=== PATIENT | female | born 1935 | race Caucasian/White ===

== ENCOUNTER → 2017-12-09 | Outpatient (CLI) | payer OTHER ==
[~2017-12-09] MED LIST: A-CARO-2525000 UNIT PO; ACIDOPHILUS PR1 EACH PO; AMBIEN 5 MG TABL5 M1; ARIXTRA; ASPIRIN EC325 M1; BENADRYL ALLERG25 MG; BENADRYL25 MG PO; BILBERRY1 EAC1 PO; CITRACAL PLUS1 EAC1; CITRACAL PLUS1 EAC1 PO; CO Q-10100 MG PO; COLACE100 MG; COQ-10100 MG PO; DIGEST GOLD PO; FISH OIL 1,0001 EAC5; FISH OIL 1,001000 MG PO; GARLIC500 MG PO; GARLIQUE5000 MCG PO; GRAPESEED PO; HYALURONIC ACI1 EACH PO; HYDROXYZINE HCL25 M1; JOINT HEALTH T1 EACH PO; L-LYSINE500 M1 PO; LUTEIN PO; MAG PO; METAMUCIL1 EAC1; MOM; OMEGA-31000 M1 PO; OXECTA5 MG; PAIN & FEVER325 MG; PEPCID AC20 M1; PEPCID40 MG PO; PERCOCET 5-3251 EACH; POLICOSANOL PO; RAW CALCIUM PO; SILVADENE20 GM; STRESS B-COMPL1 EACH PO; SYNTHROID100 MCG PO; TART CHERRY CA1 EACH PO; Turmeric PO; VITAMIN B-12500 MCG PO; VITAMIN D-32000 UNIT PO; VITAMIN D35000 UNI1 PO; VITAMIN E400 UNI7 PO; VITAMIN K100 MCG PO; VITAMINC500 PO; VITCB500GO PO; ZEAXANTHIN PO; [UNRECOGNIZED DRUG - OTHER] PO; [UNRECOGNIZED DRUG - OTHER] PO
== END ==
LOC: M.NUC 11-30 11:24
DX: M81.0 Age-related osteoporosis without current pathological fracture (principal); M19.072 Primary osteoarthritis, left ankle and foot; M19.032 Primary osteoarthritis, left wrist

== ENCOUNTER → 2018-01-03 | Outpatient (CLI) | payer OTHER | LOC: M.ULTRA 10:00 | DX: M79.604 Pain in right leg (principal); M79.89 Other specified soft tissue disorders ==

== ENCOUNTER 2018-02-01 11:45 | Emergency (ER) | payer OTHER ==
[~2018-02-01] VITALS: Ht 167.6 cm; Wt 101.2 kg
[~2018-02-01 11:45] MED LIST changes: -A-CARO-2525000 UNIT PO; -BENADRYL25 MG PO; -CO Q-10100 MG PO; -GARLIC500 MG PO; -JOINT HEALTH T1 EACH PO; -OMEGA-31000 M1 PO; -PEPCID40 MG PO; -STRESS B-COMPL1 EACH PO; -TART CHERRY CA1 EACH PO; -VITAMIN K100 MCG PO; -VITAMINC500 PO
[2018-02-01] MEDS ORDERED: VITAMIN K100 MCG PO (12:17)
[2018-02-01] MEDS ORDERED: TART CHERRY CA1 EACH PO (12:19)
[2018-02-01] MEDS ORDERED: A-CARO-2525000 UNIT PO (12:19)
[2018-02-01] MEDS ORDERED: STRESS B-COMPL1 EACH PO (12:20)
[2018-02-01] MEDS ORDERED: JOINT HEALTH T1 EACH PO (12:20)
[2018-02-01] MEDS ORDERED: OMEGA-31000 M1 PO (12:24)
[2018-02-01] MEDS ORDERED: VITAMINC500 PO (12:25)
[2018-02-01] MEDS ORDERED: CO Q-10100 MG PO (12:25)
[2018-02-01] MEDS ORDERED: GARLIC500 MG PO (12:26)
[2018-02-01] MEDS ORDERED: BENADRYL25 MG PO (13:12)
[2018-02-01] MEDS ORDERED: PEPCID40 MG PO (13:12)
[2018-02-01 13:22] VITALS: BP 131/50
== END 2018-02-01 13:23 | disposition home or self-care (01) ==
LOC: M.ERS 11:45
DX: T78.40XA Allergy, unspecified, initial encounter (principal); X58.XXXA Exposure to other specified factors, initial encounter; M10.9 Gout, unspecified; E03.9 Hypothyroidism, unspecified; Z90.49 Acquired absence of other specified parts of digestive tract

== ENCOUNTER → 2018-04-04 | Outpatient (CLI) | payer OTHER ==
[~2018-04-04] MED LIST changes: +A-CARO-2525000 UNIT PO; +BENADRYL25 MG PO; +CO Q-10100 MG PO; +GARLIC500 MG PO; +JOINT HEALTH T1 EACH PO; +OMEGA-31000 M1 PO; +PEPCID40 MG PO; +STRESS B-COMPL1 EACH PO; +TART CHERRY CA1 EACH PO; +VITAMIN K100 MCG PO; +VITAMINC500 PO
== END ==
LOC: M.RAD 12:44
DX: R92.1 Mammographic calcification found on diagnostic imaging of breast (principal)

== ENCOUNTER → 2018-04-07 | Outpatient (CLI) | payer OTHER ==
--- NOTE | 2018-04-20 00:39 | ONC ---
[place] [address] RADIATION ONCOLOGY NOTE Name: CORI FRANCISCO Room: [facility]#: [id number] Admission: 04/07/18 Attend Phys: Yosef Forte MD Discharge: Date of : 37 Report #: [id number] THIS REPORT FOR: //name// CC: Yosef Savage DATE OF SERVICE: 04/07/2018 REFERRING PHYSICIANS: Niecy Nair DO; Sesar Fernando MD and Dr. Greg Savage [facility] phone is [phone]. PRIMARY SITE AND HISTOPATHOLOGY: The patient received radiation therapy as part of breast conservation therapy for a stage IA infiltrating ductal carcinoma that involved the right breast. She completed radiation therapy on 01/24/2013. She also has been following up with her gynecological oncologist, Dr. Castillo after she had a hysterectomy in 2007 for an early uterine cancer. INTERVAL NOTE: The patient denied having any nipple discharge from the right breast. She denied having any nipple discharge from the left breast. She denied having any suspicious palpable masses involving the right breast. She denied having any suspicious palpable mass involving the left breast. She denied having any upper extremity edema. MEDICATIONS: Levothyroxine and supplements. SOCIAL HISTORY: The patient is retired. She is . Cigarettes: she does not smoke cigarettes. REVIEW OF SYSTEMS: RESPIRATORY: The patient's breathing was baseline at this time. She was not short of breath. MUSCULOSKELETAL: She had good range of motion of her upper extremities. PHYSICAL EXAMINATION: With my nurse, Alma Younger, present: VITAL SIGNS: The patient weighed 212 pounds on 04/07/2018 and 203.2 pounds on 04/08/2017. On 04/07/2018, blood pressure was 137/71 and pulse 89. LYMPH NODES: She had no palpable cervical, supraclavicular or axillary lymphadenopathy. HEART: Had a regular rate and rhythm without murmur. LUNGS: were clear to auscultation. BREASTS: Right breast had no suspicious palpable masses[place] [address] RADIATION ONCOLOGY NOTE Name: CORI FRANCISCO Room: [facility]#: [id number] Admission: 04/07/18 Attend Phys: Yosef Forte MD Discharge: Date of : 37 Report #: [id number] suspicious palpable masses. ABDOMEN: Not tender. Liver was at the costal margin. EXTREMITIES: She had no clubbing, cyanosis or edema. RADIOLOGIC DATA: From 04/04/2018 from [facility], she had a bilateral mammogram which revealed benign findings and annual mammography was recommended. ASSESSMENT AND PLAN: 1. History of right breast cancer- There is no evidence of breast cancer at this time. The patient was given a requisition for a bilateral mammogram in about a year. She was asked to schedule a followup appointment to see me afterwards. 2. History of early uterine cancer- She had a hysterectomy around 05/13/2008. She was following up with her gynecological oncologist, Dr. Castillo who may have retired according to the patient. If that is the case, she will be referred to the gynecological oncologist, Dr. Salgado for continued followup. 3. Hypothyroidism- The patient takes Synthroid under the direction of her referring physicians. 4. Benign systolic ejection murmur- She continues to have a stable systolic ejection murmur and follows up with her internet developer, Dr. Fernando. Thank you for allowing me to participate in the care of this patient. <ELECTRONICALLY SIGNED> By: Yosef Forte MD 04/20/18 0039 1305 0110Yosef Forte MD /nt
== END ==
LOC: M.RTH 01:31
DX: C50.911 Malignant neoplasm of unspecified site of right female breast (principal); E03.9 Hypothyroidism, unspecified; R01.1 Cardiac murmur, unspecified

== ENCOUNTER → 2018-05-02 | Outpatient (CLI) | payer OTHER ==
--- NOTE | 2018-05-02 16:43 | 2DMMODE ---
[place] [address] 2 D/M-MODE ECHOCARDIOGRAM Name: CORI FRANCISCO MINERVA Room: [facility]#: [id number] Admission: 05/02/18 Attend Phys: Sesar Fernando, Discharge: Date of : 37 Date of Service: 05/02/18 1643 Report #: [id number] THIS REPORT FOR: //name// APPROVED REPORT Study performed: 05/02/2018 14:22:24 EXAM: Comprehensive 2D, Doppler, and color-flow Echocardiogram Patient Location: Out-Patient Status: routine BSA: 1.95 HR: 92 bpm BP: 120/68 mmHg Other Information Study Quality: Good Indications Aortic Valve Disease 2D Dimensions LVEF(%): 71.36 (>50%) IVSd: 12.41 (7-11mm) LVOT Diam: 20.44 (18-24mm) LVDd: 43.42 mm PWd: 11.21 (7-11mm) Ascending Ao: 26.89 (22-36mm) LVDs: 25.89 (25-40mm) Aortic Root: 28.41 mm Sinclair's LVEF: 71.36 % Volumes Left Atrial Volume (Systole) LA ESV Index: 24.00 mL/m2 Aortic Valve AoV Peak Zeb.: 4.26 m/s AO Peak Gr.: 72.73 mmHg LVOT Max P.18 mmHg AO Mean Gr.: 43.94 mmHg LVOT Mean P.64 mmHg LVOT Max V: 0.89 m/s AO V2 VTI: 103.25 cm LVOT Mean V: 0.59 m/s DENILSON (VTI): 0.67 cm2 LVOT V1 VTI: 20.95 cm AI [place]: 5.26 m/s2 AI PHT: 234.70 [place] [address] 2 D/M-MODE ECHOCARDIOGRAM Name: NOLANCORI PALMA Room: [facility]#: [id number] Admission: 05/02/18 Attend Phys: Sesar Fernando, Discharge: Date of : 37 Date of Service: 05/02/18 1643 Report #: [id number] MV Peak Gr.: 11.38 mmHg MV Mean Gr.: 5.62 mmHg E/A Ratio: 1.34 MV Decel. Time: 169.90 ms MV E Max Zeb.: 1.48 m/s MV PHT: 49.27 ms MVA (PHT): 4.47 cm2 TDI E/Lateral E': 16.44 E/Medial E': 29.60 Medial E' Zeb.: 0.05 m/s Lateral E' Zeb.: 0.09 m/s Pulmonary Valve PV Peak Zeb.: 0.79 m/s PV Peak Gr.: 2.52 mmHg Tricuspid Valve TR Peak Gr.: 56.44 mmHg RVSP: 61.44 mmHg Left Ventricle The left ventricle is normal size. There is normal LV segmental wall motion. There is normal left ventricular wall thickness. Left ventricular systolic function is normal. LVEF is 55-60%. Transmitral Doppler flow pattern suggests restrictive physiology. Right Ventricle The right ventricle is normal size. The right ventricular systolic function is normal. Atria Left atrium is mildly dilated. Right atrium is moderately dilated. Aortic Valve Aortic valve is calcified. Moderate aortic regurgitation. Severe aortic stenosis. Mitral Valve There is mitral annular calcification. Mitral valve leaflets are thickened. Moderate mitral regurgitation. Mild to moderate mitral stenosis. Tricuspid Valve The tricuspid valve is normal in structure. Moderate tricuspid regurgitation. The RVSP is __61.4 [place] [address] 2 D/M-MODE ECHOCARDIOGRAM Name: CORI FRANCISCO Room: [facility]#: [id number] Admission: 05/02/18 Attend Phys: Sesar Fernando, Discharge: Date of : 37 Date of Service: 05/02/18 1643 Report #: [id number] The pulmonary valve is normal in structure. There is no pulmonic valvular regurgitation. Great Vessels The aortic root is normal in size. IVC is normal in size and collapses with >50% inspiration Pericardium There is no pericardial effusion. <Conclusion> The left ventricle is normal size. There is normal left ventricular wall thickness. Left ventricular systolic function is normal. LVEF is 55-60%. Transmitral Doppler flow pattern suggests restrictive physiology. Left atrium is mildly dilated. Right atrium is moderately dilated. Aortic valve is calcified. Moderate aortic regurgitation. Severe aortic stenosis. There is mitral annular calcification. Mitral valve leaflets are thickened. Moderate mitral regurgitation. Mild to moderate mitral stenosis. Moderate tricuspid regurgitation. The RVSP is __61.4 mmHg. <ELECTRONICALLY SIGNED> By: Sesar Fernando MD, FACC 05/02/18 164 42 42 Sesar Fernando MD, FACC /INF
== END ==
LOC: M.CRD 14:00
DX: I08.3 Combined rheumatic disorders of mitral, aortic and tricuspid valves (principal)

== ENCOUNTER 2019-03-13 17:29 | Inpatient (IN) | payer OTHER ==
[~2019-03-13] VITALS: Ht 167.6 cm; Wt 93.9 kg
[2019-03-13 17:47] VITALS: BP 151/81
[2019-03-13 18:24] LABS: ABSOLUTE BASOPHILS 0.1 thou/uL (0.0-0.2); ABSOLUTE EOSINOPHILS 0.2 thou/uL (0.0-0.7); ABSOLUTE LYMPHOCYTES 0.7 thou/uL (0.8-5.3); ABSOLUTE MONOCYTES 0.2 thou/uL (0.0-1.2); ABSOLUTE NEUTROPHILS 2.8 thou/uL (1.6-8.1); BASOPHILS 2.1 %; EOSINOPHILS 4.8 %; HEMATOCRIT 35.9 % (37.0-47.0); HEMOGLOBIN 12.3 gm/dL (12.0-15.0); LYMPHOCYTES 17.4 %; MCHC 34.2 g/dL (28.0-37.0); MCV 96.5 fL (80.0-100.0); MONOCYTES 5.6 %; MPV 6.1 fl. (7.2-11.1); NUCLEATED RBCS 0 /100WBC; PLATELET COUNT* 189 thou/uL (150-400); POLYS 70.1 %; RBC 3.72 mil/uL (4.20-5.00); RDW-CV 16.8 % (10.5-14.5); WBC 4.1 thou/uL (4.0-11.0)
[2019-03-13 18:32] LABS: CALCIUM 9.1 mg/dL (8.5-10.1); CREATININE 0.8 mg/dL (0.6-1.3); POTASSIUM 4.2 mmol/L (3.5-5.1)
[2019-03-13 18:43] LABS: ALBUMIN 3.2 g/dL (3.4-5.0); TOTAL BILIRUBIN 1.5 mg/dL (<0.1-1.0); TOTAL PROTEIN 6.6 g/dL (6.4-8.2)
[2019-03-13 20:00] VITALS: BP 156/75
[2019-03-13 20:05] VITALS: BP 145/68
--- NOTE | 2019-03-14 01:46 | NUR ---
PT ADMIT TO ROOM 231. ALERT, ORIENTED, FORGETFUL. UP TO BSC WITH STAND BY ASSIST. GOOD RESPONCE WITH LASIX. 4500 OP SO FAR THIS SHIFT. LOWER EXTREM EDEMA +3. LOWER LEG SKIN RIPPLED. DENIES PAIN. MED SURG STATUS.
[2019-03-14 04:00] VITALS: BP 123/53
--- NOTE | 2019-03-14 04:23 | NUR ---
NPO SINCE MN. FOR CARDIOLOGY CONSULT.
[2019-03-14 05:47] LABS: HEMATOCRIT 32.7 % (37.0-47.0); HEMOGLOBIN 11.2 gm/dL (12.0-15.0); MCH 32.8 pg (26.0-34.0); MCHC 34.3 g/dL (28.0-37.0); MCV 95.5 fL (80.0-100.0); MPV 6.7 fl. (7.2-11.1); RBC 3.42 mil/uL (4.20-5.00); WBC 3.6 thou/uL (4.0-11.0)
[2019-03-14 06:15] LABS: ALBUMIN 2.7 g/dL (3.4-5.0); CALCIUM 8.4 mg/dL (8.5-10.1); CREATININE 0.8 mg/dL (0.6-1.3); MAGNESIUM 1.9 mg/dL (1.8-2.4); POTASSIUM 3.7 mmol/L (3.5-5.1); TOTAL BILIRUBIN 1.3 mg/dL (<0.1-1.0); TOTAL PROTEIN 5.7 g/dL (6.4-8.2)
[2019-03-14 08:00] VITALS: BP 134/53
[2019-03-14] MEDS ORDERED: LEVAQUIN 500 M500 M2 PO (12:05)
--- NOTE | 2019-03-14 12:22 | NUR ---
MET WITH PT TO DISCUSS HOME SITUATION/DC PLANNING. PT LIVES ALONE, HAS SUPPORTIVE COUSIN AND DTR. PT DRIVES AND IS INDEPENDENT. USES CANE AND HAS WALK IN TUB. HAD HH IN PAST WITH HER KNEE SURGERIES. STATES HAS HAD PROBLEMS WITH LYMPHEDEMA IN HER LEG SINCE SURGERY. DTR AND COUSIN ARE DPOA. PT DENIES NEEDS AT THIS TIME.
--- NOTE | 2019-03-14 13:30 | 2DMMODE ---
[place] [address] 2 D/M-MODE ECHOCARDIOGRAM Name: CORI FRANCISCOU Room: [address] IN [facility]#: [id number] Admission: 03/13/19 Attend Phys: Shakira Wilson, Discharge: Date of : 37 Date of Service: 03/14/19 1330 Report #: [id number] THIS REPORT FOR: //name// APPROVED REPORT Study performed: 03/14/2019 10:50:27 EXAM: Comprehensive 2D, Doppler, and color-flow Echocardiogram Patient Location: In-Patient Room #: [facility] Status: routine BSA: 2.03 HR: 77 bpm BP: 134/53 mmHg Rhythm: NSR Other Information Study Quality: Good Indications Aortic Valve Disease edema 2D Dimensions IVSd: 13.99 (7-11mm) LVOT Diam: 20.13 (18-24mm) LVDd: 35.40 mm PWd: 13.02 (7-11mm) Ascending Ao: 28.60 (22-36mm) LVDs: 21.60 (25-40mm) Aortic Root: 30.09 mm Volumes Left Atrial Volume (Systole) LA ESV Index: 41.00 mL/m2 Aortic Valve AoV Peak Zeb.: 4.62 m/s AO Peak Gr.: 85.38 mmHg LVOT Max P.55 mmHg AO Mean Gr.: 55.22 mmHg LVOT Mean P.77 mmHg LVOT Max V: 0.94 m/s AO V2 VTI: 118.13 cm LVOT Mean V: 0.61 m/s DENILSNO (VTI): 0.67 cm2 LVOT V1 VTI: 24.96 cm AI Maries: 3.75 m/s2 AI PHT: 329.99 [place] [address] 2 D/M-MODE ECHOCARDIOGRAM Name: CORI FRANCISCO Room: [address] IN ..#: [id number] Admission: 03/13/19 Attend Phys: Shakira Wilson, Discharge: Date of : 37 Date of Service: 03/14/19 1330 Report #: [id number] MV Mean Gr.: 4.28 mmHg E/A Ratio: 1.44 MV Decel. Time: 183.41 ms MV E Max Zeb.: 1.41 m/s MV PHT: 53.19 ms MVA (PHT): 4.14 cm2 TDI E/Lateral E': 23.50 E/Medial E': 28.20 Medial E' Zeb.: 0.05 m/s Lateral E' Zeb.: 0.06 m/s Pulmonary Valve PV Peak Zeb.: 0.90 m/s PV Peak Gr.: 3.21 mmHg Tricuspid Valve RAP Estimate: 10.00 mmHg TR Peak Gr.: 46.70 mmHg RVSP: 56.00 mmHg PA Pressure: 56.00 mmHg Left Ventricle The left ventricle is normal size. There is normal LV segmental wall motion. Moderate concentric left ventricular hypertrophy. Left ventricular systolic function is normal. The left ventricular ejection fraction is within the normal range. LVEF is 55-60%. The left ventricular diastolic function is normal. Right Ventricle Right ventricle is mildly dilated. The right ventricular systolic function is normal. Atria Left atrium is mild to moderately dilated. Right atrium is mildly dilated. Aortic Valve Severe aortic valve sclerosis. Moderate aortic regurgitation. Severe aortic stenosis with a peak gradient of 88 mmHg Mitral Valve Moderate mitral annular calcification. Mild to moderate mitral regurgitation. No evidence of mitral valve stenosis. Tricuspid Valve The tricuspid valve is normal in structure. Moderate tricuspid regurgitation. Moderate [place] [address] 2 D/M-MODE ECHOCARDIOGRAM Name: CORI FRANCISCO Room: [address] IN [facility]#: [id number] Admission: 03/13/19 Attend Phys: Shakira Wilson, Discharge: Date of : 36 Date of Service: 03/14/19 1330 Report #: [id number] Pulmonic Valve The pulmonary valve is normal in structure. There is no pulmonic valvular regurgitation. Great Vessels The aortic root is normal in size. The IVC is dilated. Pericardium There is no pericardial effusion. <Conclusion> The left ventricle is normal size. Moderate concentric left ventricular hypertrophy. Left ventricular systolic function is normal. The left ventricular ejection fraction is within the normal range. LVEF is 55-60%. The left ventricular diastolic function is normal. Right ventricle is mildly dilated. Left atrium is mild to moderately dilated. Right atrium is mildly dilated. Severe aortic valve sclerosis. Moderate aortic regurgitation. Severe aortic stenosis with a peak gradient of 88 mmHg Moderate mitral annular calcification. Mild to moderate mitral regurgitation. No evidence of mitral valve stenosis. The tricuspid valve is normal in structure. Moderate tricuspid regurgitation. Moderate pulmonary hypertension. The IVC is dilated. There is no pericardial effusion. There is normal LV segmental wall motion. <ELECTRONICALLY SIGNED> By: Danie Petty MD, FACC 03/14/19 1330 29 Danie Petty MD, FACC /INF
--- NOTE | 2019-03-14 14:53 | NUR ---
WOUND CARE NOTE: CONSULT RECEIVED FOR BLE LYMPHEDEMA. PATIENT WITH EVIDENCE OF LYMPHEDEMA TO BLE, THICKNENED, DRY, SCALEY SKIN. PATEINT STATES SHE HAS A DERMATITIS R/T WHEAT INTOLERANCE. 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 PATIENT DECLINES COMPRESSION THERAPY FROM ME AT THIS TIME, STATES SHE WEARS AN 11W SHOE AND WOULD NOT BE ABLE TO FIT INTO THEM IF WE DID COMPRESSION. PATIENT DOES ADMIT TO HAVING LYMPHEDEMA THERAPY APPOINTMENTS X2, BUT HAS MISSED BOTH OF THEM. THE FIRST TIME BECAUSE SHE DID NOT KNOW WHERE TO GO AND THE SECOND BECAUSE SHE NEEDED TO GO TO THE ER. SPOKE WITH OUTPATIENT THERAPY AND MADE AN APPOINTMENT FOR 03/22, GAVE INFORMATION TO PATIENT'S RN. RECOMMEND KEEP LEGS ELEVATED KEEP APPOINTMENT WITH LYMPHEDEMA THERAPY
--- NOTE | 2019-03-14 15:20 | NUR ---
PT IS AOX4 PLEASANT. LEGS ARE SWOLLEN, LYMPHEDEMA. RA SATURATION ABOVE 95%. VSS. IV ABX GIVEN FOR PENUMONIA. DISCHARGE ORDERED. WOUND CARE SAW PT IN ROOM. F/U APPOINTMENT WITH LYMPHEDEMA OFFICE SET UP. DC INSTRUCTIONS GIVEN.
--- NOTE | 2019-03-14 16:00 | NUR ---
PT LEFT FLOOR AT 1540 ACCOMANIED BY VOLUNTEER AND RELATIVE ON A WHEELCHAIR. DC INSTRUCTIONS GIVEN. NO FURTHER QUESTIONS
== END 2019-03-14 21:29 | disposition home or self-care (01) | DRG 177 ==
LOC: M.ERS 17:29 → M.TBA-ER 18:54 → M.2W 18:54
PROVIDERS: Emergency Medicine; ADMIT Internal Medicine
DX: J15.6 Pneumonia due to other Gram-negative bacteria (principal); I50.33 Acute on chronic diastolic (congestive) heart failure; I35.0 Nonrheumatic aortic (valve) stenosis; M81.0 Age-related osteoporosis without current pathological fracture; E03.9 Hypothyroidism, unspecified; Z96.652 Presence of left artificial knee joint; M10.9 Gout, unspecified; I34.0 Nonrheumatic mitral (valve) insufficiency; I89.0 Lymphedema, not elsewhere classified; Z60.2 Problems related to living alone; Z90.12 Acquired absence of left breast and nipple; Z85.42 Personal history of malignant neoplasm of other parts of uterus; Z90.49 Acquired absence of other specified parts of digestive tract; Z79.899 Other long term (current) drug therapy; Z90.710 Acquired absence of both cervix and uterus; Z88.2 Allergy status to sulfonamides; Z88.8 Allergy status to other drugs, medicaments and biological substances; Z91.018 Allergy to other foods; Z88.1 Allergy status to other antibiotic agents; Z85.3 Personal history of malignant neoplasm of breast

== ENCOUNTER → 2019-04-09 | Outpatient (CLI) | payer OTHER ==
[~2019-04-09] MED LIST changes: +LEVAQUIN 500 M500 M2 PO
== END ==
LOC: M.RAD 10:56
DX: Z12.31 Encounter for screening mammogram for malignant neoplasm of breast (principal); M81.0 Age-related osteoporosis without current pathological fracture; N91.2 Amenorrhea, unspecified; Z78.0 Asymptomatic menopausal state

== ENCOUNTER → 2019-04-13 | Outpatient (CLI) | payer OTHER ==
--- NOTE | ~2019-04-13 | ONC ---
[address] [address] RADIATION ONCOLOGY NOTE Name: CORI FRANCISCO Room: [facility].#: [id number] Admission: 04/13/19 Attend Phys: Yosef Forte MD Discharge: Date of : 36 Report #: [id number] THIS REPORT FOR: //name// CC: Yosef Nair REFERRING PHYSICIANS: Include Niecy Nair DO, Sesar Fernando MD, Greg Savage DO [facility] phone is [phone]. PRIMARY SITE AND HISTOPATHOLOGY: The patient received radiation therapy as part of breast-conservation therapy for a stage IA infiltrating ductal carcinoma of the right breast. She completed radiation therapy on 01/24/2013. She also has been following up with her gynecological oncologist, Dr. Rafael Diaz after a hysterectomy in 2007 for an early uterine cancer, though more recently, she followed up with one of the colleagues of Dr. Salgado. INTERVAL NOTE: The patient denied having any nipple discharge from the right breast. She denied having any nipple discharge from the left breast. She denied having any suspicious palpable masses, involving the right breast. She denied having any suspicious palpable masses involving the left breast. She denied having any upper extremity edema. She denied having any vaginal discharge. MEDICATIONS: Lasix, Synthroid, levothyroxine and supplements. SOCIAL HISTORY: The patient is retired. She is . Cigarettes, she does not smoke cigarettes. REVIEW OF SYSTEMS: RESPIRATORY: The patient's breathing was baseline. She was not short of breath at this time, though she was treated for heart failure, since her last followup appointment. MUSCULOSKELETAL: Good range of motion of the upper extremities. PHYSICAL EXAMINATION: With my nurse, Alma Younger, present: VITAL SIGNS: The patient weighed 178.6 pounds on 04/13/2019, 112 pounds on 04/07/2019 and 04/13/2019, blood pressure is 107/47, pulse 77, respirations 20. LYMPH NODES: The patient had no palpable cervical or supraclavicular or axillary lymphadenopathy. HEART: Regular rate and rhythm without murmur. LUNGS: Clear to auscultation. BREASTS: Right breast had no suspicious palpable masses. Left breast had no suspicious palpable masses. ABDOMEN: Nontender. Spleen was not palpable. Liver was at the costal margin. EXTREMITIES: Had no clubbing, [place] [address] RADIATION ONCOLOGY NOTE Name: CORI FRANCISCO Room: [facility]#: [id number] Admission: 04/13/19 Attend Phys: Yosef Forte MD Discharge: Date of : 36 Report #: [id number] RADIOLOGIC DATA: The patient had a bilateral mammogram on 04/09/2019, which revealed benign findings. ASSESSMENT AND PLAN: 1. History of right breast cancer. The patient has no evidence of breast cancers at this time. A requisition was written for bilateral mammogram in about a year. She was asked to schedule a followup appointment to see me afterwards. 2. History of early uterine cancer. She had a hysterectomy on 05/13/2008. Follow up initially with her gynecological oncologist, Dr. Rafael Diaz, is retired, later with one of Dr. Salgado's staff, is another gynecological oncologist at [facility]. 3. Hypothyroidism. The patient takes Synthroid, under the direction of her referring physicians. Thank you for allowing me to participate in the care of this patient. By: 1524 0530Yosef Forte MD /jody
== END ==
LOC: M.RTH 04:47
DX: Z09 Encounter for follow-up examination after completed treatment for conditions other than malignant neoplasm (principal); E03.9 Hypothyroidism, unspecified; Z90.710 Acquired absence of both cervix and uterus; Z79.899 Other long term (current) drug therapy; Z85.3 Personal history of malignant neoplasm of breast; Z85.42 Personal history of malignant neoplasm of other parts of uterus; Z92.3 Personal history of irradiation

== ENCOUNTER → 2020-04-09 | Outpatient (CLI) | payer OTHER | LOC: M.RAD 13:00 | DX: Z12.31 Encounter for screening mammogram for malignant neoplasm of breast (principal) ==

== ENCOUNTER → 2020-04-11 | Outpatient (CLI) | payer OTHER ==
--- NOTE | ~2020-04-11 | ONC ---
[place] [address] RADIATION ONCOLOGY NOTE Name: CORI FRANCISCO Room: [facility].#: [id number] Admission: 04/11/20 Attend Phys: Yosef Forte MD Discharge: Date of : 36 Report #: [id number] THIS REPORT FOR: //name// CC: Yosef Nair DATE OF SERVICE: 04/11/2020 REFERRING PHYSICIANS: Niecy Nair DO; Sesar Fernando MD; Dr. Greg Savage; Dr. Salgado. [facility] phone is [phone]. PRIMARY SITE AND HISTOPATHOLOGY: The patient received radiation therapy as part of breast conservation therapy for stage IA infiltrating ductal carcinoma of the right breast. She completed radiation therapy on 01/24/2013. She also had followup with Dr. Salgado because she had a hysterectomy in 2007 for an early uterine cancer. INTERVAL NOTE: The patient denied having any nipple discharge from the right breast. She denied having any nipple discharge from the left breast. She denied having any suspicious palpable masses involving the right breast. She denied having any suspicious palpable masses involving the left breast. She denied having any upper extremity edema. She denied having any vaginal discharge. She has chronic right lower extremity lymphedema after having an orthopedic surgery on her knee a few years ago. MEDICATIONS: She is now on Synthroid, levothyroxine, and supplements. Her Lasix was discontinued. SOCIAL HISTORY: The patient is retired. She is . Cigarettes; she does not smoke cigarettes. REVIEW OF SYSTEMS: RESPIRATORY: The patient's breathing was baseline. She was not short of breath. MUSCULOSKELETAL: She has good range of motion of her upper extremities. PHYSICAL EXAMINATION: With my nurse, Alma Younger, present: VITAL SIGNS: The patient weighed 157.6 pounds on 04/11/2020 and 78.6 pounds on 04/13/2019. On 04/11/2020; blood pressure was 118/54, pulse 82, respirations 16, oxygen saturation 94%, temperature 96.7 degrees Fahrenheit. LYMPH NODES: The patient had no palpable cervical or supraclavicular or axillary lymphadenopathy. HEART: Had a regular rate and rhythm without murmur. LUNGS: Clear [place] [address] RADIATION ONCOLOGY NOTE Name: CORI FRANCISCO Room: [facility]#: [id number] Admission: 04/11/20 Attend Phys: Yosef Forte MD Discharge: Date of : 37 Report #: [id number] BREASTS: Right breast had no suspicious palpable masses. 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 There were no suspicious palpable masses involving the left breast. ABDOMEN: Not tender, spleen was not palpable. Liver was at the costal margin. EXTREMITIES: Had no clubbing, cyanosis or edema. RADIOLOGIC DATA: The patient had a bilateral mammogram on 04/09/2020 which revealed benign findings. ASSESSMENT AND PLAN: 1. History of right breast cancer. There is no evidence of breast cancer at this time. A requisition was written for bilateral mammogram in about a year. She was asked to schedule a followup appointment to see me afterwards. 2. History of early uterine cancer. She follows up with Dr. Salgado and her primary care physician, Dr. Nair, with regards to the history of uterine cancer. 3. Hypothyroidism. The patient takes Synthroid under direction of her referring physicians. Thank you for allowing me to participate in the care of this patient. By: 1251 1312Dmichelle Forte MD /jody
--- NOTE | ~2020-04-11 | ONC ---
[address] [address] RADIATION ONCOLOGY NOTE Name: CORI FRANCISCO Room: [facility]..#: [id number] Admission: 04/11/20 Attend Phys: Yosef Forte MD Discharge: Date of : 37 Report #: [id number] THIS REPORT FOR: //name// CC: Yosef Nair DATE OF SERVICE: 04/11/2020 RADIATION ONCOLOGY FOLLOWUP NOTE The patient was seen on 04/11/2020. REFERRING PHYSICIANS: Include Niecy Nair DO; Sesar Fernando MD; Greg Savage DO; and Dr. Salgado. [place] [facility] phone is [phone]. DICTATION ENDS HERE By: 1237 1245Yosef Forte MD /nt
== END ==
LOC: M.RTH 05:26
DX: Z08 Encounter for follow-up examination after completed treatment for malignant neoplasm (principal); Z85.3 Personal history of malignant neoplasm of breast; E03.9 Hypothyroidism, unspecified

== ENCOUNTER 2021-01-09 12:51 | Inpatient (IN) | payer OTHER ==
[~2021-01-09] VITALS: Ht 167.6 cm; Wt 117.9 kg
--- NOTE | ~2021-01-09 | PROC ---
[address] [address] PROCEDURE REPORT Name: FRANCISCOCORONATiti PALMA Room: [address] ADM IN M.R.#: [id number] Admission: 01/09/21 Attend Phys: Shakira Wilson MD Discharge: Date of : 37 Report #: [id number] THIS REPORT FOR: cc: Niecy Nair Linda J. DO ~ [facility],Medical Records Staff For GI report, please see the Provation report in Perceptive 7 content. By: 1309Medical Records Staff GAVIN /FATIMAH
[2021-01-09 13:08] VITALS: BP 126/59
[2021-01-09 13:47] LABS: ABSOLUTE EOSINOPHILS 0.1 thou/uL (0.0-0.7); ABSOLUTE LYMPHOCYTES 0.5 thou/uL (0.8-5.3); ABSOLUTE MONOCYTES 0.3 thou/uL (0.0-1.2); ABSOLUTE NEUTROPHILS 4.1 thou/uL (1.6-8.1); BASOPHILS 0.8 %; EOSINOPHILS 1.3 %; HEMATOCRIT 37.6 % (37.0-47.0); HEMOGLOBIN 12.9 gm/dL (12.0-15.0); LYMPHOCYTES 10.1 %; MCH 35.1 pg (26.0-34.0); MCHC 34.3 g/dL (28.0-37.0); MCV 102.4 fL (80.0-100.0); MONOCYTES 6.4 %; NUCLEATED RBCS 0 /100WBC; PLATELET COUNT* 172 thou/uL (150-400); POLYS 81.4 %; RBC 3.68 mil/uL (4.20-5.00); RDW-CV 16.8 % (10.5-14.5)
[2021-01-09 13:53] LABS: CALCIUM 8.8 mg/dL (8.5-10.1); CREATININE 0.8 mg/dL (0.6-1.3); POTASSIUM 5.1 mmol/L (3.5-5.1)
[2021-01-09 14:04] LABS: ALBUMIN 2.7 g/dL (3.4-5.0); TOTAL BILIRUBIN 2.2 mg/dL (<0.1-1.0); TOTAL PROTEIN 5.9 g/dL (6.4-8.2)
--- NOTE | 2021-01-09 15:06 | EKG ---
[place] [address] ELECTROCARDIOGRAM REPORT Name: CORI FRANCISCO Room: [facility]#: [id number] Admission: 01/09/21 Attend Phys: Discharge: Date of : 37 Date of Service: 01/09/21 1407 Report #: [id number] THIS REPORT FOR: //name// [facility] ED Test Date: 2021-01-09 Test Time: 14:07:26 Pat Name: CORI FRANCISCO Department: Room: Gender: F Time Motion Analyst: MIK : 1935 Requested By: Talya Camara Order Number: [id number] MD: Greg Valenzuela Measurements Intervals [place] Rate: 92 P: 102 [place]: 213 QRS: 80 QRSD: 102 T: 30 QT: 397 QTc: 492 Interpretive Statements Pacemaker spikes or artifacts sinus rhythm Low voltage, extremity leads Probable anteroseptal infarct, old Compared to ECG 04/07/2012 10:29:41 Low QRS voltage now present Myocardial infarct finding now present Electronically Signed On 01-09-2021 15:06:34 YARN SPINNER by Greg Valenzuela [email or web address] <ELECTRONICALLY SIGNED> By: Greg Valenzuela MD, [facility] 01/09/21 1506 1407 1407 Greg Valenzuela MD, [facility] /EPI
--- NOTE | 2021-01-09 15:07 | EKG ---
[place] [address] ELECTROCARDIOGRAM REPORT Name: CORI FRANCISCO Room: [facility]#: [id number] Admission: 01/09/21 Attend Phys: Discharge: Date of : 37 Date of Service: 01/09/21 1408 Report #: [id number] THIS REPORT FOR: //name// [facility] ED Test Date: 2021-01-09 Test Time: 14:08:47 Pat Name: CORI FRANCISCO Department: Room: Gender: F Interior Design Faculty Member: : 1935 Requested By: Talya Camara Order Number: [id number] Reading MD: Greg Valenzuela Measurements Intervals [place] Rate: 74 P: 74 TN: 60 QRS: 90 QRSD: 96 T: 42 QT: 373 QTc: 414 Interpretive Statements Sinus rhythm Ventricular premature complex Low voltage with right axis deviation Probable anteroseptal infarct, old Compared to ECG 01/09/2021 14:07:26 Myocardial infarct finding still present Electronically Signed On 01-09-2021 15:07:36 LOW PRESSURE BOILER TENDER by Greg Valenzuela [email or web address] <ELECTRONICALLY SIGNED> By: Greg Valenzuela MD, [facility] 01/09/21 1507 1408 1408 Greg Valenzuela MD, [facility] /EPI
[2021-01-09 16:35] LABS: URINE BILIRUBIN NEGATIVE (Negative); URINE BLOOD 1+ (Negative); URINE COLOR YELLOW; URINE GLUCOSE-RANDOM NEGATIVE (Negative); URINE KETONES TRACE (Negative); URINE LEUKOCYTES-REFLEX NEGATIVE (Negative); URINE PROTEIN 1+ (Negative); URINE SPECIFIC GRAVITY 1.025 (1.005-1.030); URINE UROBILINOGEN 0.2 E.U./dl (0.2-1.0)
[2021-01-09 16:42] LABS: URINE CLARITY HAZY; URINE NITRITE-REFLEX POSITIVE (Negative)
[2021-01-09 16:53] LABS: SQUAMOUS 4-10 Moderate /LPF (0-3)
[2021-01-09 16:54] LABS: BACTERIA-REFLEX >30 Many /HPF (None Seen); CASTS None Seen /LPF (None Seen); CRYSTALS None Seen /LPF (None Seen); URINE RBC 3-10 Few /HPF (0-2); URINE WBC-REFLEX 0-5 Rare /HPF (0-5)
[2021-01-09 19:40] LABS: CALCIUM 9.4 mg/dL (8.5-10.1); CREATININE 0.8 mg/dL (0.6-1.3); POTASSIUM 4.7 mmol/L (3.5-5.1)
[2021-01-09 20:00] VITALS: BP 128/70
[2021-01-09 20:30] VITALS: BP 129/60
[2021-01-10] VITALS (7 sets, daily range): BP systolic 90–134; BP diastolic 43–65
[2021-01-10 04:38] LABS: HEMATOCRIT 34.9 % (37.0-47.0); HEMOGLOBIN 12.1 gm/dL (12.0-15.0); MCH 35.4 pg (26.0-34.0); MCHC 34.7 g/dL (28.0-37.0); MCV 102.1 fL (80.0-100.0); MPV 6.3 fl. (7.2-11.1); RBC 3.41 mil/uL (4.20-5.00); RDW-CV 16.6 % (10.5-14.5); WBC 4.8 thou/uL (4.0-11.0)
[2021-01-10 04:54] LABS: ALBUMIN 2.3 g/dL (3.4-5.0); CALCIUM 8.5 mg/dL (8.5-10.1); CREATININE 0.8 mg/dL (0.6-1.3); MAGNESIUM 1.8 mg/dL (1.8-2.4); TOTAL BILIRUBIN 1.6 mg/dL (<0.1-1.0); TOTAL PROTEIN 4.9 g/dL (6.4-8.2)
[2021-01-11 04:00] VITALS: BP 95/52
[2021-01-11 04:29] LABS: ABSOLUTE EOSINOPHILS 0.2 thou/uL (0.0-0.7); ABSOLUTE LYMPHOCYTES 0.8 thou/uL (0.8-5.3); ABSOLUTE MONOCYTES 0.5 thou/uL (0.0-1.2); ABSOLUTE NEUTROPHILS 3.8 thou/uL (1.6-8.1); BASOPHILS 0.9 %; EOSINOPHILS 4.4 %; HEMATOCRIT 31.9 % (37.0-47.0); HEMOGLOBIN 11.3 gm/dL (12.0-15.0); LYMPHOCYTES 14.7 %; MCH 35.6 pg (26.0-34.0); MCHC 35.4 g/dL (28.0-37.0); MCV 100.7 fL (80.0-100.0); MONOCYTES 8.7 %; MPV 6.1 fl. (7.2-11.1); NUCLEATED RBCS 0 /100WBC; PLATELET COUNT* 160 thou/uL (150-400); POLYS 71.3 %; RBC 3.17 mil/uL (4.20-5.00); RDW-CV 16.4 % (10.5-14.5); WBC 5.3 thou/uL (4.0-11.0)
[2021-01-11 04:37] LABS: PREALBUMIN 10.4 mg/dL (18.0-35.7)
[2021-01-11 04:50] LABS: ALBUMIN 2.2 g/dL (3.4-5.0); CALCIUM 7.8 mg/dL (8.5-10.1); CREATININE 0.8 mg/dL (0.6-1.3); MAGNESIUM 1.8 mg/dL (1.8-2.4); POTASSIUM 3.7 mmol/L (3.5-5.1); TOTAL BILIRUBIN 1.2 mg/dL (<0.1-1.0); TOTAL PROTEIN 4.9 g/dL (6.4-8.2)
[2021-01-11 04:51] LABS: CHOLESTEROL 128 mg/dL (<200); HDL CHOLESTEROL 51 mg/dL (>40); LDL CHOLESTEROL 72 mg/dL (<100); TC:HDL 2.5 Ratio (Not establshd); TRIGLYCERIDE 29 mg/dL (<150); VLDL 6 mg/dL (<40)
[2021-01-11 05:13] LABS: SERUM ASSESSMENT CLEAR
[2021-01-11 08:00] VITALS: BP 107/44
[2021-01-11 11:44] VITALS: BP 96/44
--- NOTE | 2021-01-11 12:05 | CON ---
[address] [address] CONSULTATION Name: CORI FRANCISCO Room: [address] IN M.R.#: [id number] Admission: 01/09/21 Attend Phys: Shakira Wilson MD Discharge: Date of : 37 Report #: [id number] THIS REPORT FOR: cc: Niecy Nair Linda J. DO ~ Sonia Patel MD [facility] CARDIOLOGY CONSULTATION HISTORY OF PRESENT ILLNESS: I was asked by Dr. Shakira Wilson to see this 85-year-old white female in cardiology consultation for evaluation and treatment of congestive heart failure. This lady has a history of severe aortic stenosis with moderate aortic insufficiency. She has been followed by Dr. Fernando. He last saw her last fall, I believe. In fact, it was 08/27/2020. She apparently had a visit scheduled 3 months ago and missed it. She was asymptomatic when last seen, but now she has come in with clearcut congestive heart failure. She is a terrible historian. She apparently has had Lasix in the past, but stopped taking it because it made her swell up, she said. At any rate, according Dr. Fernando's note, she was not on Lasix or ARB, other medicines for heart failure as of 08/2020. She came in at this time because of worsening dyspnea on exertion as well as bilateral lower extremity edema that was worsening. She does have chronic lymphedema, however. She had abdominal wall distention, was found to have anasarca with fluid in her belly. She has been unable to pursue daily activity of living due to worsening edema. She is unable to bend over. Her legs are swelling worse. She is having trouble having bowel movements. She has had some orthopnea and PND as well as the dyspnea on exertion. She appears to be mildly short of breath at rest, sitting up. PAST MEDICAL HISTORY: As described above. ALLERGIES: SHE IS ALLERGIC TO TYLENOL, FOSAMAX, GLUTEN, HYDROCODONE, IBUPROFEN, NAPROXEN. MEDICATIONS: Her home medication list is quite extensive, but actually only includes true 2 real medicines that is Pepcid 40 mg daily and levothyroxine 0.1 mg daily. She has 20 different supplements that she takes. Please see the home medication sheet in the chart. She is on a variety of vitamins, etc. LABORATORY DATA: Her chest x-ray did show interstitial opacities, most prominent in the lung bases and more prominent on the left than the right. There were small pleural effusions present. There were more prominent than on the prior study. There was mild vascular congestion present. Her BNP was greater than 11,000. REVIEW OF SYSTEMS: Positive for the issues mentioned in the history of present illness. Otherwise, review of systems is negative. [place] [address] CONSULTATION Name: CORI FRANCISCO Room: [address] IN ..#: [id number] Admission: 01/09/21 Attend Phys: Shakira Wilson MD Discharge: Date of : 36 Report #: [id number] systems form for details and negatives in review of systems. She is negative for some 35 different complaints in 14 different system categories. FAMILY HISTORY: Remarkable for longevity on her mother's side with people living into their 100s. PAST MEDICAL HISTORY: Includes a hysterectomy, cholecystectomy, tubal ligation, bilateral cataracts, tonsillectomy, adenoidectomy, osteoporosis, hypothyroidism, bilateral total knee replacements, left mastectomy for breast cancer. She has gout and she has had a D and C. SOCIAL HISTORY: She does not smoke, drink or use illegal drugs. PHYSICAL EXAMINATION: GENERAL: She presents as a well-developed, well-nourished white female, in no acute distress. VITAL SIGNS: Her pulse was 84 and regular, blood pressure 116/59, respirations 16 and regular, temperature is 96.7. HEENT: Head was atraumatic. Eyes clear. NECK: Supple. There is no jugular venous distention or hepatojugular reflux. Thyroid is not enlarged. There is no adenopathy. SKIN: Warm and dry. Mucous membranes are moist. LUNGS: Clear to auscultation and percussion. HEART: Revealed normal first and second heart sound. There is a soft S4. There is no S3. There is a 3/6 systolic ejection murmur heard in the aortic area. The aortic second sound is not audible. The rhythm is regular, rate was approximately 84. PMI is nondisplaced. ABDOMEN: Soft, flat, nontender. EXTREMITIES: Reveal no cyanosis or clubbing. There is lymphedema in both lower extremities. NEUROLOGIC: The patient mentated normally, talked normally, moved all extremities normally. Chest x-ray is as above. Her EKG shows normal sinus rhythm with VPCs. There is low voltage diffusely and there is a rightward axis. There is loss of R-wave V2, V3, V4, V5. There is a possible old anteroseptal infarct, but I think this represents a clockwise rotation of the heart. This may represent lead placement issues. This is probably a short PA interval. IMPRESSION: 1. Congestive heart failure, likely due to her aortic stenosis and apparently left ventricular diastolic dysfunction. She has severe aortic stenosis on prior echocardiograms. There is moderate aortic insufficiency as well as moderate mitral regurgitation and moderate tricuspid regurgitation. [address] [place] [address] CONSULTATION Name: CORI FRANCISCO Room: [address] IN ..#: [id number] Admission: 01/09/21 Attend Phys: Shakira Wilson MD Discharge: Date of : 36 Report #: [id number] 2. Anasarca. 3. Elevated liver function tests. 4. Hypothyroidism. RECOMMENDATION: At this point, I would simply diurese her. We will get an echo and assess how better to treat her medically. This lady likely will need aortic valve replacement. Given her age and overall physical condition, she is a candidate for TAVR. Thank you very much for asking me to see this patient. If any questions, please feel free to contact me. <ELECTRONICALLY SIGNED> By: Sonia Patel MD, FACC 01/11/21 1205 1030 [id number]. Marco Patel MD, FAC /nt
[2021-01-11 16:14] VITALS: BP 108/65
[2021-01-11 21:09] VITALS: BP 120/59
[2021-01-12 00:11] VITALS: BP 106/54
[2021-01-12 04:21] LABS: ABSOLUTE EOSINOPHILS 0.2 thou/uL (0.0-0.7); ABSOLUTE MONOCYTES 0.4 thou/uL (0.0-1.2); ABSOLUTE NEUTROPHILS 3.5 thou/uL (1.6-8.1); BASOPHILS 0.9 %; EOSINOPHILS 4.5 %; HEMATOCRIT 33.2 % (37.0-47.0); HEMOGLOBIN 11.6 gm/dL (12.0-15.0); LYMPHOCYTES 18.9 %; MCH 35.2 pg (26.0-34.0); MCHC 34.9 g/dL (28.0-37.0); MCV 100.9 fL (80.0-100.0); MONOCYTES 7.8 %; MPV 5.9 fl. (7.2-11.1); NUCLEATED RBCS 0 /100WBC; PLATELET COUNT* 169 thou/uL (150-400); POLYS 67.9 %; RBC 3.29 mil/uL (4.20-5.00); RDW-CV 16.4 % (10.5-14.5); WBC 5.2 thou/uL (4.0-11.0)
[2021-01-12 04:47] LABS: ALBUMIN 2.2 g/dL (3.4-5.0); CALCIUM 7.6 mg/dL (8.5-10.1); CREATININE 0.7 mg/dL (0.6-1.3); MAGNESIUM 1.8 mg/dL (1.8-2.4); POTASSIUM 3.3 mmol/L (3.5-5.1); TOTAL BILIRUBIN 1.1 mg/dL (<0.1-1.0); TOTAL PROTEIN 5.2 g/dL (6.4-8.2)
[2021-01-12 04:48] VITALS: BP 130/61
[2021-01-12 09:00] VITALS: BP 99/46
--- NOTE | 2021-01-12 12:10 | 2DMMODE ---
[place] [address] 2 D/M-MODE ECHOCARDIOGRAM Name: CORI FRANCISCO Room: [address] IN [facility]#: [id number] Admission: 01/09/21 Attend Phys: Shakira Wilson, Discharge: Date of : 37 Date of Service: 01/12/21 1211 Report #: [id number] THIS REPORT FOR: cc: Niecy Nair,Niecy Hernandez,Danie Miramontes MD [facility] ~ APPROVED REPORT Study performed: 01/12/2021 11:12:35 EXAM: Comprehensive 2D, Doppler, and color-flow Echocardiogram Patient Location: In-Patient Room #: [facility] Status: routine BSA: 2.24 HR: 82 bpm BP: 130/61 mmHg Rhythm: NSR Other Information Study Quality: Good Indications Chest Pain 2D Dimensions IVSd: 20.99 (7-11mm) LVOT Diam: 19.40 (18-24mm) LVDd: 38.41 mm PWd: 18.83 (7-11mm) Ascending Ao: 29.80 (22-36mm) LVDs: 25.02 (25-40mm) Aortic Root: 27.30 mm Volumes Left Atrial Volume (Systole) LA ESV Index: 38.60 mL/m2 Aortic Valve AoV Peak Zeb.: 5.26 m/s AO Peak Gr.: 110.48 mmHg LVOT Max P.91 mmHg AO Mean Gr.: 69.18 mmHg LVOT Mean P.50 mmHg LVOT Max V: 0.85 m/s AO V2 VTI: 114.69 cm LVOT Mean V: 0.56 m/s DENILSON (VTI): 0.57 cm2 LVOT V1 VTI: 22.18 cm AI Cochran: 3.25 m/s2 [place] [address] 2 D/M-MODE ECHOCARDIOGRAM Name: CORI FRANCISCO MINERVA Room: [address] IN .R.#: [id number] Admission: 01/09/21 Attend Phys: Shakira Wilson, Discharge: Date of : 36 Date of Service: 01/12/21 1211 Report #: [id number] PHT: 319.88 ms Mitral Valve MV Mean Gr.: 4.21 mmHg E/A Ratio: 1.45 MV Decel. Time: 221.54 ms MV E Max Zeb.: 1.46 m/s MV PHT: 64.25 ms MVA (PHT): 3.42 cm2 TDI E/Lateral E': 18.25 E/Medial E': 29.20 Medial E' Zeb.: 0.05 m/s Lateral E' Zeb.: 0.08 m/s Pulmonary Valve PV Peak Zeb.: 0.94 m/s PV Peak Gr.: 3.57 mmHg Tricuspid Valve RAP Estimate: 15.00 mmHg TR Peak Gr.: 50.95 mmHg RVSP: 65.00 mmHg PA Pressure: 65.00 mmHg Left Ventricle The left ventricle is normal size. There is normal LV segmental wall motion. Severe concentric left ventricular hypertrophy. Left ventricular systolic function is normal. The left ventricular ejection fraction is within the normal range. LVEF is 50-55%. The left ventricular diastolic function is normal. Right Ventricle Right ventricle is mildly dilated. The right ventricular systolic function is normal. Atria Left atrium is moderately dilated. Right atrium is moderately dilated. Aortic Valve Severe aortic valve sclerosis. Moderate aortic regurgitation. Severe aortic stenosis. Mitral Valve Moderate mitral annular calcification. Moderate mitral regurgitation. No evidence of mitral valve stenosis[place] [address] 2 D/M-MODE ECHOCARDIOGRAM Name: CORI FRANCISCO Room: [address]#: [id number] Admission: 01/09/21 Attend Phys: Shakira Wilson, Discharge: Date of : 37 Date of Service: 01/12/21 1211 Report #: [id number] The tricuspid valve is normal in structure. Moderate tricuspid regurgitation. Moderate pulmonary hypertension. Pulmonic Valve The pulmonary valve is normal in structure. Trace pulmonic regurgitation. Great Vessels The aortic root is normal in size. IVC is dilated and collapses <50% with inspiration. Pericardium There is no pericardial effusion. <Conclusion> The left ventricle is normal size. Severe concentric left ventricular hypertrophy. Left ventricular systolic function is normal. The left ventricular ejection fraction is within the normal range. LVEF is 50-55%. Right ventricle is mildly dilated. Left atrium is moderately dilated. Right atrium is moderately dilated. Severe aortic valve sclerosis. Moderate aortic regurgitation. Severe aortic stenosis. Moderate mitral annular calcification. Moderate mitral regurgitation. No evidence of mitral valve stenosis. The tricuspid valve is normal in structure. Moderate tricuspid regurgitation. Moderate pulmonary hypertension. There is no pericardial effusion. There is normal LV segmental wall motion. <ELECTRONICALLY SIGNED> By: Danie Petty MD, FACC 01/12/21 121 10 10 Danie Petty MD, FACC /INF
[2021-01-12 12:36] VITALS: BP 96/43
[2021-01-12 16:26] VITALS: BP 103/52
[2021-01-12 19:35] LABS: HEMATOCRIT 34.5 % (37.0-47.0); HEMOGLOBIN 11.9 gm/dL (12.0-15.0); MCH 34.8 pg (26.0-34.0); MCHC 34.5 g/dL (28.0-37.0); MPV 5.6 fl. (7.2-11.1); RBC 3.41 mil/uL (4.20-5.00); RDW-CV 16.4 % (10.5-14.5)
[2021-01-12 20:14] VITALS: BP 116/54
[2021-01-13 00:10] VITALS: BP 131/63
[2021-01-13 03:48] VITALS: BP 110/51
[2021-01-13 04:27] LABS: ABSOLUTE BASOPHILS 0.1 thou/uL (0.0-0.2); ABSOLUTE EOSINOPHILS 0.3 thou/uL (0.0-0.7); ABSOLUTE LYMPHOCYTES 0.8 thou/uL (0.8-5.3); ABSOLUTE MONOCYTES 0.4 thou/uL (0.0-1.2); ABSOLUTE NEUTROPHILS 3.1 thou/uL (1.6-8.1); BASOPHILS 1.2 %; EOSINOPHILS 5.7 %; HEMATOCRIT 34.1 % (37.0-47.0); HEMOGLOBIN 12.1 gm/dL (12.0-15.0); LYMPHOCYTES 17.8 %; MCH 35.9 pg (26.0-34.0); MCHC 35.6 g/dL (28.0-37.0); MONOCYTES 7.9 %; MPV 5.8 fl. (7.2-11.1); NUCLEATED RBCS 0 /100WBC; PLATELET COUNT* 168 thou/uL (150-400); POLYS 67.4 %; RBC 3.38 mil/uL (4.20-5.00); WBC 4.6 thou/uL (4.0-11.0)
[2021-01-13 04:31] LABS: CALCIUM 7.6 mg/dL (8.5-10.1); CREATININE 0.8 mg/dL (0.6-1.3); POTASSIUM 3.4 mmol/L (3.5-5.1)
[2021-01-13 16:32] VITALS: BP 102/48
[2021-01-13 20:00] VITALS: BP 91/49
[2021-01-14 00:29] VITALS: BP 98/45
[2021-01-14 04:00] VITALS: BP 87/41
[2021-01-14 05:25] LABS: ABSOLUTE BASOPHILS 0.1 thou/uL (0.0-0.2); ABSOLUTE EOSINOPHILS 0.2 thou/uL (0.0-0.7); ABSOLUTE LYMPHOCYTES 0.7 thou/uL (0.8-5.3); ABSOLUTE MONOCYTES 0.3 thou/uL (0.0-1.2); ABSOLUTE NEUTROPHILS 2.9 thou/uL (1.6-8.1); BASOPHILS 1.4 %; EOSINOPHILS 5.7 %; HEMATOCRIT 33.5 % (37.0-47.0); HEMOGLOBIN 11.6 gm/dL (12.0-15.0); LYMPHOCYTES 17.3 %; MCH 34.7 pg (26.0-34.0); MCHC 34.7 g/dL (28.0-37.0); MONOCYTES 7.1 %; MPV 5.7 fl. (7.2-11.1); NUCLEATED RBCS 0 /100WBC; PLATELET COUNT* 162 thou/uL (150-400); POLYS 68.5 %; RBC 3.35 mil/uL (4.20-5.00); RDW-CV 16.2 % (10.5-14.5); WBC 4.2 thou/uL (4.0-11.0)
[2021-01-14 05:36] LABS: CALCIUM 8.3 mg/dL (8.5-10.1); CREATININE 0.7 mg/dL (0.6-1.3); POTASSIUM 3.4 mmol/L (3.5-5.1)
[2021-01-14 08:00] VITALS: BP 98/43
[2021-01-14 12:03] VITALS: BP 96/47
[2021-01-14 16:58] VITALS: BP 110/50
[2021-01-14 20:00] VITALS: BP 105/52
[2021-01-15 00:33] VITALS: BP 93/46
[2021-01-15 05:55] VITALS: BP 99/70
[2021-01-15 06:24] LABS: POTASSIUM 3.9 mmol/L (3.5-5.1)
[2021-01-15 07:45] VITALS: BP 97/50
[2021-01-15] MEDS ORDERED: NEXIUM40 MG PO (08:48)
[2021-01-15 09:08] LABS: CALCIUM 8.4 mg/dL (8.5-10.1); CREATININE 0.7 mg/dL (0.6-1.3)
[2021-01-15 11:56] VITALS: BP 97/50
[2021-01-15 16:00] VITALS: BP 112/47
[2021-01-15 18:56] LABS: CALCIUM 7.8 mg/dL (8.5-10.1); CREATININE 0.9 mg/dL (0.6-1.3); POTASSIUM 3.8 mmol/L (3.5-5.1)
[2021-01-15 20:00] VITALS: BP 100/54
[2021-01-16] VITALS: BP 96/54
[2021-01-16 04:00] VITALS: BP 112/54
[2021-01-16 08:00] VITALS: BP 1413/59
[2021-01-16 12:26] VITALS: BP 112/55
[2021-01-16 14:58] LABS: CALCIUM 7.8 mg/dL (8.5-10.1); CREATININE 0.8 mg/dL (0.6-1.3); POTASSIUM 3.8 mmol/L (3.5-5.1)
[2021-01-16 19:02] VITALS: BP 118/69
[2021-01-16 20:05] VITALS: BP 98/44
[2021-01-17 00:33] VITALS: BP 94/51
[2021-01-17 06:25] LABS: CALCIUM 8.9 mg/dL (8.5-10.1); CREATININE 0.8 mg/dL (0.6-1.3)
[2021-01-17 08:00] VITALS: BP 120/50
[2021-01-17 12:00] VITALS: BP 103/53
[2021-01-17 16:00] VITALS: BP 91/40
[2021-01-17 20:00] VITALS: BP 105/44
[2021-01-18] VITALS (7 sets, daily range): BP systolic 92–111; BP diastolic 44–67
[2021-01-18 06:30] LABS: CALCIUM 9.3 mg/dL (8.5-10.1); CREATININE 0.7 mg/dL (0.6-1.3); POTASSIUM 4.1 mmol/L (3.5-5.1)
[2021-01-18 08:09] LABS: ABSOLUTE BASOPHILS 0.1 thou/uL (0.0-0.2); ABSOLUTE EOSINOPHILS 0.2 thou/uL (0.0-0.7); ABSOLUTE LYMPHOCYTES 0.6 thou/uL (0.8-5.3); ABSOLUTE MONOCYTES 0.2 thou/uL (0.0-1.2); ABSOLUTE NEUTROPHILS 1.8 thou/uL (1.6-8.1); BASOPHILS 2.1 %; EOSINOPHILS 6.3 %; HEMOGLOBIN 10.3 gm/dL (12.0-15.0); LYMPHOCYTES 20.1 %; MCH 35.2 pg (26.0-34.0); MCHC 34.4 g/dL (28.0-37.0); MCV 102.1 fL (80.0-100.0); MONOCYTES 7.5 %; MPV 6.2 fl. (7.2-11.1); NUCLEATED RBCS 0 /100WBC; PLATELET COUNT* 128 thou/uL (150-400); RBC 2.94 mil/uL (4.20-5.00); RDW-CV 15.5 % (10.5-14.5); WBC 2.9 thou/uL (4.0-11.0)
[2021-01-19 04:11] VITALS: BP 107/58
[2021-01-19 04:46] LABS: CALCIUM 9.4 mg/dL (8.5-10.1); CREATININE 0.7 mg/dL (0.6-1.3)
[2021-01-19 05:03] LABS: POTASSIUM 4.8 mmol/L (3.5-5.1)
[2021-01-19 08:00] VITALS: BP 117/50
[2021-01-19] MEDS ORDERED: LASIX 40 MG TAB40 MG PO (08:40)
[2021-01-19 12:00] VITALS: BP 96/52
== END 2021-01-19 16:26 | DRG 291 ==
LOC: M.ERS 12:51 → M.TBA-ER 15:39 → M.2W 15:39
PROVIDERS: Internal Medicine; Internal Medicine Gastroenterology; Internal Medicine Nephrology; Physician Assistant; ADMIT Internal Medicine; ATTEND Internal Medicine
PROC: 0DB98ZX Excision of Duodenum, Via Natural or Artificial Opening Endoscopic, Diagnostic (ICD-10-PCS; principal; 2021-01-13)
PROC: 0D748ZZ Dilation of Esophagogastric Junction, Via Natural or Artificial Opening Endoscopic (ICD-10-PCS; principal; 2021-01-13)
DX: I50.33 Acute on chronic diastolic (congestive) heart failure (principal); E43 Unspecified severe protein-calorie malnutrition; E87.1 Hypo-osmolality and hyponatremia; N39.0 Urinary tract infection, site not specified; Z68.41 Body mass index [BMI] 40.0-44.9, adult; M10.9 Gout, unspecified; M81.0 Age-related osteoporosis without current pathological fracture; R53.81 Other malaise; D64.9 Anemia, unspecified; E03.9 Hypothyroidism, unspecified; K59.00 Constipation, unspecified; B96.89 Other specified bacterial agents as the cause of diseases classified elsewhere; I08.3 Combined rheumatic disorders of mitral, aortic and tricuspid valves; R79.89 Other specified abnormal findings of blood chemistry; K22.2 Esophageal obstruction; K44.9 Diaphragmatic hernia without obstruction or gangrene; Z20.822 Contact with and (suspected) exposure to COVID-19; Z96.1 Presence of intraocular lens; Z96.653 Presence of artificial knee joint, bilateral; R13.14 Dysphagia, pharyngoesophageal phase; Z90.710 Acquired absence of both cervix and uterus; Z90.49 Acquired absence of other specified parts of digestive tract; Z98.42 Cataract extraction status, left eye; Z88.8 Allergy status to other drugs, medicaments and biological substances; Z91.09 Other allergy status, other than to drugs and biological substances; Z98.41 Cataract extraction status, right eye; Z90.12 Acquired absence of left breast and nipple; Z85.42 Personal history of malignant neoplasm of other parts of uterus; Z79.899 Other long term (current) drug therapy; Z88.5 Allergy status to narcotic agent; Z88.2 Allergy status to sulfonamides; Z91.018 Allergy to other foods; Z91.14 Patient's other noncompliance with medication regimen

== ENCOUNTER → 2021-02-04 | Outpatient (CLI) | payer OTHER ==
[~2021-02-04] MED LIST changes: +LASIX 40 MG TAB40 MG PO; +NEXIUM40 MG PO
[2021-02-04 15:56] LABS: ALBUMIN 3.3 g/dL (3.4-5.0); CALCIUM 8.8 mg/dL (8.5-10.1); CREATININE 0.9 mg/dL (0.6-1.3); POTASSIUM 4.5 mmol/L (3.5-5.1); TOTAL BILIRUBIN 1.7 mg/dL (<0.1-1.0); TOTAL PROTEIN 6.6 g/dL (6.4-8.2)
== END ==
LOC: M.LAB 15:22
PROVIDERS: ATTEND Registered Nurse
DX: I50.32 Chronic diastolic (congestive) heart failure (principal)

== ENCOUNTER 2021-02-08 23:44 | Inpatient (IN) | payer OTHER ==
[~2021-02-08] VITALS: Ht 152.4 cm; Wt 8.5 kg
[2021-02-08 23:45] VITALS: BP 131/49
[2021-02-09 00:21] LABS: BE 3.9 mmol/L (-2 to +3); PCO2 35.9 mmHg (35.0-45.0); pH 7.496 (7.340-7.450)
[2021-02-09 00:23] LABS: PO2 52.6 mmHg (75.0-100.0)
[2021-02-09 00:35] LABS: HEMATOCRIT 33.1 % (37.0-47.0); HEMOGLOBIN 11.4 gm/dL (12.0-15.0); MCH 35.5 pg (26.0-34.0); MCHC 34.3 g/dL (28.0-37.0); MCV 103.6 fL (80.0-100.0); MPV 6.4 fl. (7.2-11.1); NUCLEATED RBCS 0 /100WBC; PLATELET COUNT* 156 thou/uL (150-400); RDW-CV 16.1 % (10.5-14.5); WBC 7.6 thou/uL (4.0-11.0)
[2021-02-09 00:44] LABS: CALCIUM 8.8 mg/dL (8.5-10.1); CREATININE 1.1 mg/dL (0.6-1.3); POTASSIUM 4.4 mmol/L (3.5-5.1)
[2021-02-09 00:49] LABS: APTT 23.9 Seconds (25.0-31.3); INR 1.1; PROTIME 11.4 Seconds (9.20-11.50)
[2021-02-09 00:55] LABS: ALBUMIN 3.5 g/dL (3.4-5.0); MAGNESIUM 2.2 mg/dL (1.8-2.4); TOTAL BILIRUBIN 2.3 mg/dL (<0.1-1.0); TOTAL PROTEIN 7.3 g/dL (6.4-8.2)
[2021-02-09 01:30] LABS: URINE BILIRUBIN NEGATIVE (Negative); URINE BLOOD NEGATIVE (Negative); URINE CLARITY CLEAR; URINE COLOR DARK YELLOW; URINE GLUCOSE-RANDOM NEGATIVE (Negative); URINE KETONES NEGATIVE (Negative); URINE LEUKOCYTES-REFLEX NEGATIVE (Negative); URINE NITRITE-REFLEX NEGATIVE (Negative); URINE PROTEIN 2+ (Negative); URINE SPECIFIC GRAVITY 1.025 (1.005-1.030)
--- NOTE | 2021-02-09 01:31 | NUR ---
PTS SON IN ROOM UPDATED WITH PTS CONSENT
[2021-02-09 01:34] LABS: ABSOLUTE LYMPHOCYTES 0.4 thou/uL (0.8-5.3); ABSOLUTE MONOCYTES 0.1 thou/uL (0.0-1.2); ABSOLUTE NEUTROPHILS 7.1 thou/uL (1.6-8.1); PLATELET ESTIMATE ADEQUATE; TOXIC GRANULATION 1+
[2021-02-09 01:36] LABS: SQUAMOUS 4-10 Moderate /LPF (0-3)
[2021-02-09 01:37] LABS: AMORPHOUS URATES Few /LPF (None Seen); CASTS None Seen /LPF (None Seen); MUCUS 4-6 Moderate strn/LPF (None Seen); URINE RBC 3-10 Few /HPF (0-2); URINE WBC-REFLEX 0-5 Rare /HPF (0-5)
[2021-02-09 06:07] VITALS: BP 119/63
--- NOTE | 2021-02-09 07:02 | NUR ---
RECIEVED PT FROM ER AT 0600H, ON NC AT 2LPM AND TOLERATED. AO X 4. WITH WEEPING EDEMA LE PLUS WOUNDS. NO FEVER. CONTINUE MONITORING TOWARDS GOALS.
[2021-02-09 08:00] VITALS: BP 141/102
--- NOTE | 2021-02-09 10:53 | NUR ---
WOUND CARE NURSE: PATIENT SEEN AND ASSESSMENT PERTAINING TO CHRONIC BLE LYMPHEDEMA. 3+ PITTING EDEMA NOTED TO BOTH LOWER LEGS. GIRTH MEASUREMENTS FOREFOOT, ANKLE, AND CALF: LEFT 24, 25, 44.5 CM. RIGHT 26, 24, 48 CM. DRIED SCABBED AREAS NOTED CIRCUMFRENTIALY TO BOTH LEGS MID CALF AREA. NO DRAINAGE NOTED AND NO OPEN AREA NOTED AT THIS TIME. PEDAL PULSES STRONG ON BOTH FEET. DENIES PAIN IN LEGS. PICTURES TAKEN AND PLACED IN CHART. BOTH LEGS CLEANSED WITH SOAP AND WATER, RINSED AND PATTED DRY. MOISTURIZING LOTION APPLIED TO INTACT SKIN TOES TO KNEE. APPLIED XERORM GAUZE TO SUPERFICIAL HEALING SCABBED AREAS. WRAPPED BLE WITH COTTON PADDING UNDER KERLEX ROLL GAUZE, UNDER JURGEN WRAP TOES TO KNEE. TOLERATED WELL. DAUGHTER WAS AT BEDSIDE. EDUCATION ON DRESSING WITH COMPRESSION AND LEG ELEVATION. VOICED UNDERSTANDING AND AGREED. DENIES CURRENT QUESTIONS OR NEEDS. PRIMARY RN AWARE OF NEW DRESSING
--- NOTE | 2021-02-09 11:25 | EKG ---
[place] [address] ELECTROCARDIOGRAM REPORT Name: CORI FRANCISCOU Room: [address] ADM IN M.R.#: [id number] Admission: 02/09/21 Attend Phys: Susie Jane MD Discharge: Date of : 36 Date of Service: 02/08/21 2352 Report #: [id number] THIS REPORT FOR: //name// [facility] ED Test Date: 2021-02-08 Test Time: 23:52:50 Pat Name: CORI FRANCISCO Department: Room: [facility] Gender: F [employer]: [place] : 1935 Requested By: Gertrude Rodgers Order Number: [id number] MD: Danie Petty Measurements Intervals [place] Rate: 115 P: 115 MD: 153 QRS: 109 QRSD: 94 T: 3 QT: 277 QTc: 383 Interpretive Statements Sinus tachycardia Right axis deviation Borderline low voltage, extremity leads Abnormal R-wave progression, late transition Compared to ECG 01/09/2021 14:08:47 Sinus rate has increased Ventricular premature complex(es) no longer present Myocardial infarct finding no longer present Electronically Signed On 02-09-2021 11:25:20 CDT by Danie Petty [email or web address] <ELECTRONICALLY SIGNED> By: Danie Petty MD, [facility] 02/09/21 1125 51 51 Danie Petty MD, [facility] /EPI
--- NOTE | 2021-02-09 13:06 | NUR ---
CM spoke with Pt and dtr in room. Pt known to this CM from previous hospital stay. Pt recently dc from the hospital on 01/19 to [facility]. Per dtr, Pt was dc to home last Tuesday, HH was not resumed, so Pt has been at home without HH services, Pt had been receiving lympodema bandage changes. Per dtr, Pt had been doing ok at home, was up with walker, moved a little slower than normally, but was doing ok. Family was checking in on Pt regularly. Dtr stated that yesterday, Pt became feverish and started chilling, which warranted family to call 911. Therapies to eval. Dtr hopeful that Pt will be able to return home with [facility], but is open to SNF if needed, dtr does not want Pt to return to [facility]. Pt would have approx 10 skilled days remaining. CM to assess appropriate dispo once therapies eval. Pt has a good support sx, friends provide transportation. Pt also has a cane at home. Anticipate dc in a few days. Following.
[2021-02-09 14:31] LABS: CALCIUM 8.7 mg/dL (8.5-10.1); CREATININE 1.2 mg/dL (0.6-1.3); POTASSIUM 4.2 mmol/L (3.5-5.1)
[2021-02-09 16:00] VITALS: BP 102/48
[2021-02-09 19:06] LABS: HEPATITIS B SURFACE AG Negative (Negative)
--- NOTE | 2021-02-09 19:36 | NUR ---
PT UP IN CHAIR THIS AFTERNOON. REPOSITIONED FREQUENTLY WHILE IN BED. DTR AT BS AND UPDATED ON PT STATUS. LASIX GTT INFUSING. TRUJILLO CATH DRAINING CLEAR YELLOW URINE. NSR ON MONITOR. PT EDUCATED ON FLUID RESTRICTION
[2021-02-09 20:00] VITALS: BP 89/40
[2021-02-10 04:00] VITALS: BP 87/41
[2021-02-10 05:01] LABS: HEMATOCRIT 26.6 % (37.0-47.0); MCH 35.8 pg (26.0-34.0); MCHC 34.9 g/dL (28.0-37.0); MCV 102.3 fL (80.0-100.0); MPV 6.7 fl. (7.2-11.1); RBC 2.6 mil/uL (4.20-5.00); WBC 8.1 thou/uL (4.0-11.0)
[2021-02-10 05:02] LABS: HEMOGLOBIN 9.3 gm/dL (12.0-15.0)
[2021-02-10 05:24] LABS: ALBUMIN 2.6 g/dL (3.4-5.0); CALCIUM 8.7 mg/dL (8.5-10.1); CREATININE 1.2 mg/dL (0.6-1.3); MAGNESIUM 2.2 mg/dL (1.8-2.4); POTASSIUM 3.9 mmol/L (3.5-5.1); TOTAL BILIRUBIN 1.8 mg/dL (<0.1-1.0); TOTAL PROTEIN 5.8 g/dL (6.4-8.2); TROPONIN-I LEVEL 0.1 ng/mL (<0.06)
[2021-02-10 08:00] VITALS: BP 102/44
[2021-02-10 11:57] VITALS: BP 98/44
[2021-02-10 12:55] VITALS: BP 98/44
--- NOTE | 2021-02-10 12:55 | NUR ---
Anticipate dc to home tomorrow with [facility].
--- NOTE | 2021-02-10 14:37 | NUR ---
WOUND NURSE: PATIENT SEEN TO ADDRESS PERIPHERAL EDEMA IN BILATERAL LOWER EXTREMITIES ALONG WITH WOUNDS. RIGHT LOWER LEG PRESENTS WITH SIGNIICANT PERIPHERAL EDEMA AND GIRTH MEASUREMENTS ARE FOLLOWS: FOREFOOT:25 ANKLE:26.5 CALF:53.5 CM. THERE IS A SHALLOW WOUND ON THE MEDIAL ASPECT MEASURING 6.0 X 9.0 X 0.1 CM. WOUND BED CONTAINS RED, NONGRANULATING TISSUE, AND THE EDGES ARE IRREGULAR AND CONTAIN PINK EPITHELIAL TISSUE. THERE IS A MODERATE AMOUNT OF SEROUSANGUINOUS DRAINAGE PRESENT. NO PERIOWOUND REDNESS, WARMTH, OR INDURATION. HOWEVER, BLE IS HYPERPIGMENTED. LLE IS LESS EDEMATOUS AND GIRTH MEASUREMENTS ARE FOLLOWS: FOREFOOT: 23, ANKLE 23, CALF 44.5 CM. THER IS A WOUND THE CIRCUMFERENCE OF THE LOWER LEG MEASURING 6.0 X 28.0 X 0.1 CM. CONTAINS REDDISH PURPLE NONGRANULATING TISSUE IN THE WOUND BED, WOUND EDGES ARE IRRIGULAR. SLIGHT REDNESS IS NOTED. TOES ARE PINK AND CAPILLARY REFILL <3 SECONDS. BILATERAL PEDAL PULSES ARE PALPABLE AND 1+. PATIENT WITHOUT COMPLAINTS OF PAIN DURING CARE PROVIDED. BLE CLEANSED WITH SOAP & WATER, RINSED, THEN PATTED DRY. APPLIED LOTION TO INTACT SKIN TOES TO KNEE. APPLIED XEROFORM GAUZE UNDER ABD'S TO WOUNDS, THEN WRAPPED WITH COTTON CAST PADDING UNDER KERLEX UNDER JURGEN WRAPS. PATIENT IS NOT ATTEMPTING TO REPOSITION HERSELF AND REFUSED TO HAVE POSTERIOR ASSESSED FOR POSSIBLE BREAKDOWN. BASED ON THIS AND < RENETTA JACKI MATTRESS IS RECOMMENDED AND ORDERED. PATIENT INSTRUCTED ON MEASURES TO HELP CONTROLL EDEMA AND PROMOTE HEALING. REINFORCEMENT OF INSTRUCTIONS WILL BE NEEDED.
[2021-02-10 16:43] VITALS: BP 82/39
[2021-02-10 19:30] VITALS: BP 91/50
[2021-02-11] VITALS (16 sets, daily range): BP systolic 87–114; BP diastolic 40–66
[2021-02-11 06:27] LABS: HEMATOCRIT 26.9 % (37.0-47.0); HEMOGLOBIN 9.3 gm/dL (12.0-15.0); MCHC 34.7 g/dL (28.0-37.0); MCV 103.8 fL (80.0-100.0); MPV 6.3 fl. (7.2-11.1); RBC 2.6 mil/uL (4.20-5.00); RDW-CV 16.1 % (10.5-14.5); WBC 10.6 thou/uL (4.0-11.0)
[2021-02-11 06:49] LABS: CALCIUM 8.9 mg/dL (8.5-10.1); CREATININE 1.2 mg/dL (0.6-1.3); MAGNESIUM 2.3 mg/dL (1.8-2.4); POTASSIUM 3.9 mmol/L (3.5-5.1)
--- NOTE | 2021-02-11 08:02 | NUR ---
ASSUMED PT CARE AT 1930. PT IS A/OX4. PT'S BP HAS BEEN IN 90/50'S. PT AFEBRILE. PT HAS CHF EXACERBATION. PT HAS BLLE LYMPHEDEMA, EDEMA 4+ BLLE. SKIN IS WARM/HOT TO THE TOUCH. BLLE HAVE BEEN WRAPPED PER WOUND CARE NURSE WITH XEROFORM GAUZE UNDER ABD, COTTON CAST PADDING UNDER KERLEX UNDER JURGEN WRAPS. NO DRAINAGE NOTED LAST NIGHT. PTS LUNG SOUNDS WERE DIMINISHED. PT IS ON 2L VIA NC. PT RESTED DURING THE NOC. NO C/O VOICED. PT HAS A LOW AIRLOSS MATTRESS. MEDICATIONS ADMINISTERED PRESCRIBED. CALL LIGHT WITHIN REACH. FALL PRECAUTIONS IN PLACE. HOURLY ROUNDING COMPLETE CHARTED.
--- NOTE | 2021-02-11 12:22 | NUR ---
Pt transferred to ICU. Will need pressors. IVABX. Lasix gtt
--- NOTE | 2021-02-11 16:58 | NUR ---
RIGHT BASILIC VESSEL ACCESSED FOR 5 TAIWANESE TRIPLE LUMEN PICC. LINE PRE-TRIMMED TO 38 CM AND ADVANCED BUT UNABLE TO ADVANCE CATHETER PAST THE SUBCLAVIAN VESSEL PER SHERLOCK MAGNET AND 3CG. LINE PULLED BACK AND RE-ADVANCED SEVERAL TIMES WITH MINIMAL RESISTANCE BUT UNABLE TO TERMINATE TIP IN THE SVC. LINE PULLED OUT AND PRESSURE HELD WITH GAUZE FOR 5 MINUTES. RIGHT CEPHALIC VESSEL ACCESSED FOR 5 TAIWANESE TRIPLE PICC. LINE ADVANCED BUT UNABLE TO PASS THROUGH SUBCLAVIAN VESSEL. LINE PULLED BACK TO THE 20CM JENAE AND LEFT TO DWELL A MIDLINE. REPORT GIVEN TO MICHELLE GRAY AND DR SWIFT NOTIFIED. CENTRAL LINE ORDERED BY DR SWIFT AND DR. AMIN DELEGATED THIS ORDER TO NATASHA NINA RN.
--- NOTE | 2021-02-11 17:08 | NUR ---
RIGHT INERNAL JUGULAR VESSEL ACCESSED FOR 6 MEXICAN TRIPL LUMEN CENTRAL LINE. SITE PREPPED WITH CHG AND ALLOWED TO DRY FOR 3 MINUTES. PATIENT PREPPED AND DRAPED WITH STERILE FIELD AND LOCALIZED WITH 1% LIDOCAINE. VESSEL ACCESSED WITH #20 ROBIN NEEDLE AND FLOPPY-TIPPED NITINOL WIRE, MICROINTRODUCER INSERTED OVERWIRE WITH MINIMAL RESISTANCE AND CLEAN ENTRY. 6 MEXICAN TRIPLE LUMEN CATHETER EASILY INSERTED THROUGH MICROINTRODUCER TO THE 18CM JENAE AND SECURED WITH STATLOCK X2. GOOD BRISK BLOOD RETURN NOTED WITH ALL LUMEN EASILY FLUSHED. INSERTION SITE DRESSED WITH BIOPATCH AND BIO-OCCLUSIVE DRESSING. POST-PROCEDURE CXR SHOWS TIP TERMINATES AT THE CAVOATRIAL JUNCTION. REPORT GIVEN TO MICHELLE GRAY.
--- NOTE | 2021-02-11 17:11 | NUR ---
VS CHARTED, HYPOTENSIVE, SR ON TELE, NC@2L, +4 EDEMA BLE- LEGS WRAPPED, TRUJILLO, LOW AIR LOSS MATTRESS, TRANSFERRED TO ICU FOR PRESSURE SUPPORT. REPORT GIVEN TO TEAM PRIMARY CARE PHYSICIAN OSMAR.
--- NOTE | 2021-02-11 19:44 | NUR ---
Pt presented to ICU at 1300 from [facility] for low bp; central line placed, no pressors needed through shift- pt stayed stable with the midodrine during my shift; 4+ bilateral edema on legs, warm to touch, wrapped; started lasix with stabilized bp.
[2021-02-12] VITALS (60 sets, daily range): BP systolic 85–128; BP diastolic 34–74
[2021-02-12 10:42] LABS: CALCIUM 9.3 mg/dL (8.5-10.1); CREATININE 1.2 mg/dL (0.6-1.3); POTASSIUM 3.9 mmol/L (3.5-5.1)
--- NOTE | 2021-02-12 13:00 | NUR ---
ICU rounds: On lasix and levo gtt. Central line and phipps in place.
[2021-02-13] VITALS (98 sets, daily range): BP systolic 90–139; BP diastolic 31–65
--- NOTE | 2021-02-13 04:26 | NUR ---
ASSUMED CARE AT 1900H, ON NC AT 2LPM AND TOLERATED. ON RECLINING CHAIR, RESTING AND ALERT/ORIENTED. STILL ON LASIX DRIP AT 5MG/HR AND LEVO AT 9MICS, TITRATED. NO DISTRESS AND NO FEVER NOTED. WITH RASHES AT THE BACK, PT REFUSED TO TAKE BENADRYL. CONTINUE MONITORING AND TOWARDS GOALS. LATEST LEVO AT 11MICS. CVP OF 11.
[2021-02-13 04:39] LABS: HEMATOCRIT 29.6 % (37.0-47.0); HEMOGLOBIN 10.1 gm/dL (12.0-15.0); MCHC 34.2 g/dL (28.0-37.0); MCV 102.4 fL (80.0-100.0); MPV 6.8 fl. (7.2-11.1); NUCLEATED RBCS 0 /100WBC; PLATELET COUNT* 136 thou/uL (150-400); RBC 2.89 mil/uL (4.20-5.00); RDW-CV 15.8 % (10.5-14.5); WBC 17.9 thou/uL (4.0-11.0)
[2021-02-13 05:05] LABS: ALBUMIN 2.2 g/dL (3.4-5.0); CALCIUM 9.1 mg/dL (8.5-10.1); CREATININE 1.2 mg/dL (0.6-1.3); POTASSIUM 3.7 mmol/L (3.5-5.1); TOTAL BILIRUBIN 1.3 mg/dL (<0.1-1.0)
[2021-02-13 06:28] LABS: ABSOLUTE LYMPHOCYTES 0.2 thou/uL (0.8-5.3); ABSOLUTE MONOCYTES 0.4 thou/uL (0.0-1.2); ABSOLUTE NEUTROPHILS 17.4 thou/uL (1.6-8.1); PLATELET ESTIMATE DECREASED
[2021-02-13 06:29] LABS: ANISOCYTOSIS 1+; POIKILOCYTOSIS 1+; POLYCHROMASIA 1+
--- NOTE | 2021-02-13 14:08 | NUR ---
ICU rounds: Remains on IV lasix. Anticipate tele status this weekend.
--- NOTE | 2021-02-13 17:57 | NUR ---
WAS ABLE TO TITRATE LEVOPHED DOWN JUST 1 MCG TODAY. PT TOLERATING PO WELL HOWEVER REFUSING MOST TURNS. SPOKE WITH SON ON PHONE AND DAUGHTER AT BEDSIDE AND GAVE UPDATES ON PLAN OF CARE. PT REMAINS ON LASIX GTT AND HAVE LARGE AMOUNT OF URINE OUTPUT VIA TRUJILLO CATHETER. WILL CONTINUE TO ASSESS.
[2021-02-14] VITALS (48 sets, daily range): BP systolic 95–125; BP diastolic 38–58
[2021-02-14 05:36] LABS: HEMATOCRIT 33.3 % (37.0-47.0); HEMOGLOBIN 11.1 gm/dL (12.0-15.0); MCH 34.1 pg (26.0-34.0); MCHC 33.4 g/dL (28.0-37.0); MCV 101.9 fL (80.0-100.0); MPV 6.6 fl. (7.2-11.1); RBC 3.27 mil/uL (4.20-5.00); RDW-CV 15.8 % (10.5-14.5); WBC 15.9 thou/uL (4.0-11.0)
[2021-02-14 05:45] LABS: CALCIUM 8.6 mg/dL (8.5-10.1); POTASSIUM 3.5 mmol/L (3.5-5.1)
--- NOTE | 2021-02-14 08:03 | NUR ---
9704 ASSUMED CARE OF PATIENT. PLEASE SEE DOCUMENTED ASSESSMENT. PT WITH COMPRESSION WRAPS TO BLE TO ABOVE KNEES DENIES PAIN.
--- NOTE | 2021-02-14 08:17 | NUR ---
CVP PORT IS CLOTTED OFF AND DISCONTINUED. DR LOPEZ NOTIFIED. DR MOULTON NOTIFIED
--- NOTE | 2021-02-14 17:35 | NUR ---
PATIENT PROGRESSING TOWARDS GOALS. APPETITE GOOD TODAY. LYMPHEDEMA DRESSINGS REWRAPPED WITH MUCH LESS EDEMA NOTED. REMAINS ON LEVOPHED AND LASIX DRIPS. CVP DISCONTINUED AND CLOTTED PORT OPENED WITH ACTIVASE. REMAINS ON 1.5 LPM NASAL CANNULA. SON HAS VISITED.
--- NOTE | 2021-02-14 23:22 | NUR ---
INITAL ASSESMENT COMPLETED AT 1999. PT CALM AND COOPERATIVE WITH NUMEROUS REQUESTS. PT REFUSED REPOSITIONING AT THAT TIME. HAS MEDS GIVEN ORDERED PER EMAR. PT REPORTED NOT SLEEPING WELL AND WANTED TO BE ABLE TO SLEEP TONIGHT. PRN XANAX GIVEN FOR ANXIETY AND AID SLEEP. PT SLEEPING WITH OU CLOSED, CALL LIGHT IN REACH, PT USING PROPERLY.
[2021-02-15] VITALS (51 sets, daily range): BP systolic 73–106; BP diastolic 30–54
--- NOTE | 2021-02-15 01:24 | NUR ---
PT RINGING LIGHT MULTIPLE TIMES TO BE REPOSITIONED. PT WILL STATE SHE IS COMFORTABLE THEN REQUIRE STAFF TO REPOSITION AGAIN. PT STATES SHE CANNOT GET COMFORTABLE AND REQUIRES MULTIPLE ATTEMPTS. PT THEN REQUIRES ITEMS ON BEDSIDE TABLE TO BE REPOSITIONED THEN REPOSITIONED AGAIN. AFTER EXTREMELY LONG PRIODS OF TIME PT WILL FINALLY ALLOW NURSE TO LEAVE ROOM THEN RING CALL LIGHT AGAIN IB LESS THAN A MINUTE. PT THEN REPEATS TIMELESS PROCESS AGAIN IF ALLOWED. PT RINGS LIGHT AND THEN IS SLEEPING ONCE STAFF ENTERS THE ROOM. PT APPEARS TO FIGHTING SLEEP TO RING LIGHT AND REPEAT THIS PROCESS. ATTEMPTS MADE TO EXPLAIN NEED TO ALLOW STAFF FOR TIME WITH OTHER PT'S. PT THEN APPOLOGIZES AND THEN STARTS THE PROCESS AGAIN
--- NOTE | 2021-02-15 02:29 | NUR ---
PT RANG LIGHT, ENTERED ROOM AND PT SLEEPING WITH MOUTH OPEN.
[2021-02-15 04:38] LABS: HEMATOCRIT 31.2 % (37.0-47.0); HEMOGLOBIN 10.5 gm/dL (12.0-15.0); MCH 33.9 pg (26.0-34.0); MCHC 33.6 g/dL (28.0-37.0); MCV 100.8 fL (80.0-100.0); MPV 6.7 fl. (7.2-11.1); RBC 3.1 mil/uL (4.20-5.00); RDW-CV 15.9 % (10.5-14.5); WBC 12.6 thou/uL (4.0-11.0)
[2021-02-15 04:39] LABS: CALCIUM 9.3 mg/dL (8.5-10.1); POTASSIUM 3.4 mmol/L (3.5-5.1)
--- NOTE | 2021-02-15 06:19 | NUR ---
ATTEMPTED TO WEAN DOWN LEVOPHED DURING SHIFT. LEVOPHED WAS 8 MCG AT LOWEST POINT. UNABLE TO MAINTAIN MAP WITHIN 60 RANGE SO LEVOPHED IS CURRENTLY INFUSING AT 12 MCG. THIS MORNING PT INSISTED TO HANG LEGS OVER BEDSIDE TO DANGLE. HAD DISCUSSED THIS MANY TIMES DURING SHIFT. THIS TIME YESTERDAY THIS INSURANCE FOLLOW UP REP AND ANOTHER NURSE GOT PT UP TO COMMODE AND WERE BARELY ABLE TO GET HER BACK INTO BED. PT HAD BEEN REMINDED OF THIS AND INFORMED SHE IS AT HIGH RISK OF FALLING ON FLOOR. APPOLOGIZED TO PT FOR NOT ALLOWING HER TO DANGLE DURING AND EXPLAINED CONCERNS IN DEPTH. PT REQUESTED XANAX AND PRN TYLENOL WITH AM MEDS.
--- NOTE | 2021-02-15 09:46 | NUR ---
0048 ASSUMED CARE OF PATIENT. PLEASE SEE DOCUMENTED ASSESSMENT. PT IS DROWSY THIS MORNING. SHE STATES IT IS FROM "THE MEDICATION." LYMPHEDEMA WRAPS INTACT TO BLE.
--- NOTE | 2021-02-15 17:16 | NUR ---
PATIENT HAS MADE SOME PROGRESS TOWARDS GOALS. OFF OF LASIX DRIP. STARTING TO TITRATE LEVOPHED DRIP BUT DIASTOLIC PRESSURES REMAIN LOW. UP TO RECLINER FOR ALMOST 6 HOURS TODAY. NOTED WEEPING BLISTERS AROUND LOWER THORAX AFTER BEING UP IN CHAIR. PATIENT VERY UPSET TH AT SHE HAS CONTINUED TISSUE EDEMA. LEGS NOT REWRAPPED TODAY DONE 24 HOURS AGO. DAUGHTER HAS VISITED.
[2021-02-16] VITALS (49 sets, daily range): BP systolic 81–116; BP diastolic 35–53
[2021-02-16 04:04] LABS: CALCIUM 8.3 mg/dL (8.5-10.1); CREATININE 0.8 mg/dL (0.6-1.3); POTASSIUM 3.8 mmol/L (3.5-5.1)
--- NOTE | 2021-02-16 14:57 | NUR ---
ICU rounds: Pt remains on pressors, remains ICU status.
--- NOTE | 2021-02-16 18:49 | NUR ---
ASSUMED CARE OF PT 0700. ASSESSMENTS COMPLETED, SEE CHART FOR DETAILS. VITAL SIGNS CHARTED, REMAINS ON LEVOPHED GTT TO KEEP MAP AT OR ABOVE 60. TITRATED O2 DOWN TO 1L. STRICT 1500 ML FLUID RESTIRCTION, 1120 IN THIS SHIFT. UP TO CHAIR FOR HALF OF SHIFT, STAND/PIVOT WITH MINIMAL ASSIST. BILAT LEG DSGS CHANGED THIS SHIFT WITH KORTNEY BAUMANN RN. SON AT BEDSIDE VISITING AT THIS TIME. NO S/S DISTRESS AT THIS TIME. WILL CONTINUE TO MONITOR.
[2021-02-17] VITALS (49 sets, daily range): BP systolic 79–120; BP diastolic 37–56
[2021-02-18] VITALS (62 sets, daily range): BP systolic 86–124; BP diastolic 38–59
[2021-02-18 05:20] LABS: HEMATOCRIT 31.1 % (37.0-47.0); HEMOGLOBIN 10.3 gm/dL (12.0-15.0); MCH 33.9 pg (26.0-34.0); MCHC 33.2 g/dL (28.0-37.0); MCV 102.1 fL (80.0-100.0); MPV 6.6 fl. (7.2-11.1); RBC 3.04 mil/uL (4.20-5.00); RDW-CV 15.7 % (10.5-14.5); WBC 8.5 thou/uL (4.0-11.0)
[2021-02-18 05:28] LABS: BUN 24 mg/dL (7-18); CALCIUM 8.7 mg/dL (8.5-10.1); CHLORIDE 92 mmol/L (98-107); CREATININE 0.7 mg/dL (0.6-1.3); GLUCOSE 98 mg/dL (70-99); SODIUM 135 mmol/L (136-145)
[2021-02-18 05:39] LABS: ANION GAP < 0 mmol/L (7-16)
[2021-02-18 05:40] LABS: CO2 45 mmol/L (21-32)
--- NOTE | 2021-02-18 09:52 | NUR ---
WOUND NURSE: PATIENT SEEN FOR FOLLOW UP ASSESSMENT AND DRESSING CHANGE TO BLE. GIRTH MEASUREMENTS WERE OBTAINED AND ARE FOLLOWS R/L FOREFOOT: 24/22, ANKLE: 22.5/21.5, CALF: 34.5/31.5 CM. BLE PINK, DRY. WOUND ON LLE IMPROVING AND NOW MEASURING 3 X 15.5 X 0.1 CM. CONTAINS RED AND YELLOW EXUDATE AND NONGRANULATING TISSUE IN THE WOUND BED. BLE CLEANSED WITH SOAP AND WATER, RINSED WITH WATER, THEN PATTED DRY. APPLIED XEROFORM GAUZE UNDER ABD TO RLE TIBIAL ASPECT THEN WRAPPED WITH COTTON CAST PADDING UNDER KERLEX UNDER JURGEN WRAP FROM TOES TO KNEE. LLE WOUND COVERED WITH OPTIFOAM GENTLE AG, THEN WRAPPED TOES TO KNEE WITH COTTON CAST PADDING UNDER KERLEX UNDER JURGEN WRAP. LOTION WAS APPLIED TO INTACT SKIN PRIOR TO WRAP. PATIENT REINSTRUCTED ON EDEMA CONTROL & WOUND HEALING WITH GOOD UNDERSTANDING ACHIEVED.
--- NOTE | 2021-02-18 15:31 | NUR ---
Remians on gtts, 3 + edema LE, O2 1L nc. Will continue to follow for any discharge needs
--- NOTE | 2021-02-18 19:16 | NUR ---
LEVOPHED TITRATED DOWN TO 5 MCG/MIN THIS SHIFT. ATE 30-40% OF HER MEALS. WOUND DRESSED THIS AM BY IBIS. REFUSES COMPLETE TURNS, CLRT AND PILLOWS UTILISED TO RELIEF PRESSURE POINTS. DTR AND DEVANTE VISITED BRIEFLY.
[2021-02-19] VITALS (58 sets, daily range): BP systolic 78–120; BP diastolic 35–61
[2021-02-19 05:08] LABS: HEMATOCRIT 29.2 % (37.0-47.0); MCH 34.7 pg (26.0-34.0); MCHC 34.1 g/dL (28.0-37.0); MCV 101.9 fL (80.0-100.0); MPV 6.9 fl. (7.2-11.1); RBC 2.87 mil/uL (4.20-5.00); RDW-CV 15.4 % (10.5-14.5); WBC 6.1 thou/uL (4.0-11.0)
[2021-02-19 05:45] LABS: BUN 21 mg/dL (7-18); CALCIUM 9.3 mg/dL (8.5-10.1); CHLORIDE 91 mmol/L (98-107); CREATININE 0.7 mg/dL (0.6-1.3); GLUCOSE 88 mg/dL (70-99); POTASSIUM 4.2 mmol/L (3.5-5.1); SODIUM 134 mmol/L (136-145)
[2021-02-19 05:46] LABS: CO2 > 45 mmol/L (21-32)
--- NOTE | 2021-02-19 09:23 | NUR ---
WOUND NURSE: REVISITED PATIENT TO VERIFY BLE WRAPS ARE INTACT. THEY ARE. PATIENT REMAINS WITH SIGNIFICANT PITTING EDEMA IN BILATERAL UPPER LEGS. PATIENT IS ON DIURETIC THERAPY AND FLUID RESTRICTION.
--- NOTE | 2021-02-19 14:56 | NUR ---
Case and plan of care reviewed with MD each weekday during patient's length of stay. Continue plan of care per MD. Remians on IV Levophed gtt O2 0.5 L NC. Pt stated refusal of [facility] at discharge. Will continue to follow for dc planning needs
--- NOTE | 2021-02-19 19:34 | NUR ---
I ASSUMED CARE OF THE PATIENT AT 0700. SHE IS ALERT AND ORIENTED X4 AND IS UP WITH ASSIST OF 2. BED IS IN THE LOW LOCKED POSITION AND CALL LIGHT IS IN REACH. PATIENT HAS LOTS OF NEEDS AND IS VERY PARTICULAR. HOURLY ROUNDING IS COMPLETED AND PATIENT NEEDS ARE MET. PAIN IS MANAGED WITH PRN MEDS. I&O'S WERE CHARTED AND PATIENT HAS A 2000 ML FLUID RESTRICTION. FAMILY WAS AT THE BEDSIDE MOST OF THE DAY. LEVO WAS TITRATED UP TO MAINTAIN A MAP OF 65. BENADRYL WAS GIVEN FOR A RASH THAT SHE SUSPECTS IS FROM THE ANTIBIOTIC. INFECTIOUS DISEASE SAW THE PATIENT VIA TELEMED TODAY AND SIGNED OFF. LEG WRAPS LOOK GOOD AND PATIENT WAS REPOSITIONED SHE WOULD ALLOW. WILL CONTINUE TO MONITOR.
[2021-02-20] VITALS (52 sets, daily range): BP systolic 86–120; BP diastolic 34–65
--- NOTE | 2021-02-20 04:07 | NUR ---
ASSUMED CARE AT 1900H, ON NC AT 1LPM AND TOLERATED. MAINTAINED LEVO AT 9MICS THE WHOLE SHIFT. HAD 1X BM. REFUSED TURN. FLIUD RESTRICTION MAINTAINED. NO FEVER NOTED. PT STILL ITCHING, HIMS INFORMED WITH ORDER MADE AND CARRIED OUT. KEPT COMFORTABLE IN BED. CONTINUE MONITORING AND TOWARDS GOALS.
--- NOTE | 2021-02-20 13:29 | NUR ---
PLAN OF CARE: RN INFORMS THAT PT CONTINUES TO HAVE LOW BP AND THIS IS BEING MANAGED WITH MEDICAIONS. PHYSICIAN INFORM THAT PT WILL LIKELY REMAIN INPT THRU THE WEEKEND. PT MAY BENEFIT FROM HH AT D/C. CM WILL REMAIN AVAILABLE TO ASSIST AND FOLLOW NEEDED.
--- NOTE | 2021-02-20 18:25 | NUR ---
PT OUT TO CHAIR THIS MORNING, MIN ASSIST x1. SAT IN A RECLINER WHOLE DAY. CURRENTLY IN A BSC, HENCE WOUND DSG UNABLE TO ACCOMPLISH. LEVOPHED DOWN TO 8 MCG/MIN. MIDODRINE INCREASED TO 10 MG TID. TOLERATING DIET. CALLS OUT FREQUENTLY TO BE REARRANGED IN THE CHAIR. FAMILY AND FRIENDS VISITED.
[2021-02-21] VITALS (45 sets, daily range): BP systolic 78–116; BP diastolic 38–53
[2021-02-21 06:09] LABS: ALBUMIN 2.2 g/dL (3.4-5.0); ALKALINE PHOSPHATASE 164 U/L (46-116); BUN 20 mg/dL (7-18); CALCIUM 8.6 mg/dL (8.5-10.1); CHLORIDE 87 mmol/L (98-107); CREATININE 0.7 mg/dL (0.6-1.3); GLUCOSE 105 mg/dL (70-99); POTASSIUM 3.6 mmol/L (3.5-5.1); SGOT 42 U/L (15-37); SGPT 28 U/L (30-65); SODIUM 127 mmol/L (136-145); TOTAL BILIRUBIN 1.2 mg/dL (<0.1-1.0); TOTAL PROTEIN 5.9 g/dL (6.4-8.2)
[2021-02-21 06:17] LABS: CO2 > 45 mmol/L (21-32)
--- NOTE | 2021-02-21 06:50 | NUR ---
RECEIVED REPORT AND ASSUMED CARE AT 1900. VSS. ICU MONITORING IN PLACE. ASSESSMENT COMPLETED CHARTED. PT REFUSING TO REPOSITION R/L. EDUCATED ON RISK FOR PRESSURE SORE IF NOT OFF LOADING. PT VERBALIZED UNDERSTANDING. POSITION CHANGE ENCOURAGED THROUGH SHIFT. PT REFUSING TO TURN R/L. NO ACUTE CHANGES THROUGH THIS SHIFT. ROUNDING COMPLETED AND ALL NEEDS MET.
--- NOTE | 2021-02-21 18:49 | NUR ---
I ASSUMED CARE OF THE PATIENT AT 0700. SHE IS ALERT AND ORIENTED X4 AND IS UP WITH ASSIST OF 1 WITH A GAIT BELT AND WALKER. BED IS IN THE LOW LOCKED POSITION AND CALL LIGHT IS IN REACH. HOURLY ROUNDING IS COMPLETED AND PATIENT NEEDS ARE MET. PAIN IS MANAGED WITH PRN MEDS. HER APPETITE IS DECENT. SHE IS VERY PARTICULAR. SHE IS REPOSITIONED EVERY 2 HOURS AND BOOSTED UP IN THE BED. SHE REFUSES HER LEFT AND RIGHT, BUT ALLOWS FOR PILLOWS TO BE ADJUSTED AROUND HER. BOTTOM IS RED, BUT BLANCHABLE. PRESSORS ARE TO KEEP MAP ABOVE 55 AND TITRATION HAS BEEN ATTEMPTED. SHE HAS CHRONIC BACKPAIN. LEG WRAPS ARE C/D/I. OXYGEN IS STILL 0.5 L TO MAINTAIN OXYGEN GREATER THAN 90%. CARDIOLOGY SPOKE WITH THE PATIENT ABOUT FIXING HER AORTIC VALVE AT THE REQUEST OF HIMS. THE FAMILY WOULD LIKE TO MEET AT 1430 ON TUESDAY WHEN THE DAUGHTER AND COUSIN WILL BOTH BE HERE. THE PATIENT IS TRYING TO DECIDE IF SHE WANTS IT, BUT IS CURRENTLY LEANING TOWARDS BEING TRANSFERED TO [facility] NEXT WEEK FOR THE PROCEDURE. IM NOT SURE SHE UNDERSTANDS THAT IT WILL NOT CORRECT THE LYMPHEDEMA OR CHF OR OTHER COMORBIDITIES. WILL CONTINUE TO MONITOR.
[2021-02-22] VITALS (47 sets, daily range): BP systolic 86–123; BP diastolic 36–54
--- NOTE | 2021-02-22 05:14 | NUR ---
ASSUMED PATIENT CARE AT 1900. ASSESSMENTS COMPLETED CHARTED. CARDIAC MONITORING IN PLACE. NO BM DURING SHIFT. HOURLY ROUNDING IN PLACE FOR PATIENT SAFETY. FALL PRECAUTIONS IN PLACE FOR PATIENT SAFETY. BED LOCKED AND IN LOWEST POSITION. BED ALARM ON. CLWR.
--- NOTE | 2021-02-22 15:39 | NUR ---
PATIENT REMAINS A&O X 4, PLEASANT AND COOPERATIVE WITH CARES. DENIES PAIN OTHER THAN HER CHRONIC BACK PAIN THAT SHE REFUSES PAIN MEDICATION FOR. PATIENT ALSO CONTINUE TO REFUSE TO BE TURNED SHE STATES THAT SHE CAN'T DUE TO THE CURVITURE IN HER BACK. PATIENT EDUCATED ON THE RISK OF GETTING WOUNDS DUE TO NOT MOVING. PATIENT STATES THAT SHE IS AWARE AND THAT SHE SHIFTS HER BUTTOCKS AROUND. NO OTHER CONCERNS AT THIS TIME. WILL CONTINUE TO MONITOR AND CARE PER PLAN OF CARE.
[2021-02-23] VITALS (23 sets, daily range): BP systolic 80–118; BP diastolic 42–66
--- NOTE | 2021-02-23 04:07 | NUR ---
ASSUMED CARE AT 1910H, ON NC AT .5LPM AND TOLERATED. PT AWARE ABOUT THE MEETING TODAY AT 1430 REGARDING HER PLAN FOR VALVE REPALCEMENT AND CONDITION. LEVO OFF AT 1900H. NO FEVER AND DISTRESS NOTED. CONTINUE MONITORING AND TOWARDS GOALS.
[2021-02-23 09:37] LABS: CALCIUM 8.6 mg/dL (8.5-10.1); CREATININE 0.7 mg/dL (0.6-1.3); POTASSIUM 3.7 mmol/L (3.5-5.1)
--- NOTE | 2021-02-23 15:30 | NUR ---
PLAN: PT NOW TELE STATUS. RN INFORMS THAT THE PT MAY NEED TO TRANSFER FOR TAVR. PHYSICIAN RECOMMENDS TRANSFER TO [facility]. HOWEVER PT NOT IN AGREEMENT WITH THIS PLAN. PLAN FOR PHYSICIAN TO MEET WITH PT AND FAMILY TO DISCUSS THIS. CM WILL REMAIN AVAILABLE TO ASSIST AND FOLLOW NEEDED.
--- NOTE | 2021-02-23 16:58 | NUR ---
PT UP FROM ICU, AGREE WITH ASSESSMENT FROM PHILLIP RN HAD TO PUT PT UP TO 3L NC D/T ANXIETY AFTER DISCUSSION ABOUT WHAT HER NEXT STEP WAS IF WAS DOING INTERVENTION OR POSSIBLE COMFORT CARE PT HAS A LOT OF CONCERNS AND OPINIONS PT IS ALERT AND ORIENTED BUT FORGETFUL AND ANXIOUS
[2021-02-24 00:49] VITALS: BP 98/53
[2021-02-24 04:30] VITALS: BP 101/62
[2021-02-24 04:49] LABS: ANION GAP < 0 mmol/L (7-16); BUN 18 mg/dL (7-18); CALCIUM 8.7 mg/dL (8.5-10.1); CHLORIDE 87 mmol/L (98-107); CO2 40 mmol/L (21-32); CREATININE 0.6 mg/dL (0.6-1.3); GLUCOSE 84 mg/dL (70-99); POTASSIUM 3.7 mmol/L (3.5-5.1); SODIUM 126 mmol/L (136-145)
--- NOTE | 2021-02-24 07:24 | NUR ---
ASSUMED CARE OF PT AFTER REPORT AT 1930. PT A&OX4. FORGETFUL. VSS. PHYSICAL ASSESSMENT COMPLETED AND CHARTED. PT ON O2 AT 3L NC. PT TRACING SR/PVC ON TELE. PT UP WITH 1 ASSIST TO BSC. PT COMPLAINED OF BACK PAIN-MED GIVEN PER MAR. FALL PRECAUTIONS IN PLACE. CALL LIGHT WITHIN REACH.
[2021-02-24 08:50] VITALS: BP 116/55
[2021-02-24 12:37] VITALS: BP 103/59
--- NOTE | 2021-02-24 15:54 | NUR ---
tatum spk w/pt's dtr, jimmie and hipolito godoy, pt emergency contact/cousin, they stated pt lives home alone and will need 24/7 care so they want to pursue a hospice house. tatum edu jimmie and hipolito on hospice house criteria. they wanted to proceed with referral/assessment tatum munguia w/bartolo at [facility], who stated she would "have our nurse come out this evening and talked to them and send it [clinicals] over for approval for the house" if pt is deemed appropriate. tatum advised bartolo if the nurse comes after 1700/1730 she would need to enter through the ED and reachout to pt's bedside rn with questions/concerns. bartolo also provided pt's room number. tatum notified bedside rnalana of the plan. tatum updated pt's dtr jimmie that [facility] will come this evening to assessess. all agreeable to plan. tatum faxed clinicals to [phone]. [facility] phone - [phone].
[2021-02-24 16:48] VITALS: BP 98/53
[2021-02-24 20:00] VITALS: BP 117/52
[2021-02-25 00:03] VITALS: BP 88/39
[2021-02-25 01:22] VITALS: BP 90/40
[2021-02-25 05:19] VITALS: BP 97/51
[2021-02-25 08:00] VITALS: BP 95/42
[2021-02-25] MEDS ORDERED: MIDODRINE HCL10 MG PO (09:10)
[2021-02-25] MEDS ORDERED: XANAX 0.25 MG0.25 MG PO (09:10)
[2021-02-25 12:42] VITALS: BP 84/39
--- NOTE | 2021-02-25 15:26 | NUR ---
PLAN OF CARE: PLAN FOR PT TO D/C TO HOSPICE HOUSE PENDING ACCEPTANCE. PT'S FAMILY HAD INITIALLY REQUESTED HOSPICE WITH [facility]. HOWEVER AFTER RN ABDOUL COMPLETED ONSITE VISIT AND PROVIDED FAMILY INFO THEY REQUESTED THAT [facility] BE SENT A REFERRAL. CM CALLED AND FAXED REFERRAL TO [facility]. HOSPICE TO REVIEW REFERRAL AND CONTACT PT'S FAMILY. CM WILL REMAIN AVAILABLE TO ASSIST AND FOLLOW NEEDED.
--- NOTE | 2021-02-25 15:27 | NUR ---
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 ALL WOUNDS HEALED EXCEPT FOR ONE VENOUS ULCER ON THE LEFT LATERAL LEG. MEASURES 2.8 X 3.5 X 0.1 CM. CONTAINS RED, NONGRANULATING TISUE IN THE WOUND BED. SMALL AMOUNT OF SEROUSANGUINOUS DRAINAGE PRESENT. CLEANSED BLE WITH SOAP AND WATER, RINSED, THEN PATTED DRY. APPLIED MOISTURIZING LOTION TO INTACT SKIN TOES TO KNEE. OPTIFOAM GENTLE AG APPLIED TO WOUND. WRAPPED BLE WITH COTTON CAST PADDING UNDER KERLEX UNDER JURGEN WRAP TOES TO KNEE. DRESSING TO BE CHANGED THIS TUESDAY. PATIENT REPORTING SHE HAS CHOSEN TO SIGN UP FOR HOSPICE CARE.
[2021-02-25 16:14] VITALS: BP 109/52
--- NOTE | 2021-02-25 19:02 | NUR ---
PT IS ALERT AND ORIENTED BUT DROWSY T/O DAY C/O SHOULDER AND BACK PAIN AGAIN AND MORPHINE GIVEN IV AND PO ZOFRAN ALSO PT HAS ESOPHAGUS STRETCHED BEFORE AND HAS DIFFICULTY SWALLOWING AT TIMES COUGHS AND THEN GETS NAUSEATED FEELS LIKE SHE IS GOING TO PUKE PT UP IN THE CHAIR MOST OF THE DAY HOSPICE CAME TO SEE PT AND ANOTHER HOSPICE WILL COME TOMORROW MORNING M/S STATUS NOW CALL LIGHT IN REACH NO OTHER CONCERNS
[2021-02-26 04:52] VITALS: BP 90/42
--- NOTE | 2021-02-26 07:25 | NUR ---
CHANGE OF SHIFT BEDSIDE REPORT GIVEN PATIENT SEEN AT BEDSIDE, IN BED ASLEEP ASSUMED PATIENT CARE
[2021-02-26 08:00] VITALS: BP 82/46
--- NOTE | 2021-02-26 12:06 | EKG ---
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 : [id number] Requested By: Greg Valenzuela Order Number: [id number] Ivory MD: Danie Petty Measurements Intervals Mallard Rate: 78 P: 87 CO: 248 QRS: 78 QRSD: 107 T: -12 QT: 436 QTc: 497 Interpretive Statements Sinus rhythm Prolonged CO interval Probable left ventricular hypertrophy Anterior Q waves, possibly due to LVH Borderline T abnormalities, inferior leads Baseline wander in lead(s) V2 Compared to ECG 02/08/2021 23:52:50 First degree AV block now present Left ventricular hypertrophy now present T-wave abnormality now present Sinus tachycardia no longer present Electronically Signed On 02-26-2021 12:05:54 CDT by Danie Petty [email or web address] <ELECTRONICALLY SIGNED> By: Danie Petty MD, [facility] 02/26/21 1205 19 19 Danie Petty MD, [facility] /EPI
--- NOTE | 2021-02-26 14:23 | NUR ---
PLAN OF CARE: PLAN FOR PT TO TRANSFER TO HOSPICE HOUSE PENDING ACCEPTANCE. CM RECIEVED A CALL FROM [facility] TO INFORM THAT ISAAC SPENCE WILL COME TO THE HOSPITAL TO DO AN ON-SITE VISIT WITH PT'S DTR TODAY AT 1430. CM WILL REMAIN AVAILABLE TO ASSIST AND FOLLOW NEEDED. [facility] PHONE: [phone] FAX: [phone]
--- NOTE | 2021-02-26 14:27 | NUR ---
PLAN OF CARE: PT REMAINS TELE STATUS. PT HAVING INCREASED OXYGEN NEEDS. PT CURRENTLY ON 55L HIGH FLOW O2 AND 100% FI02. PT MAY NEED HOME OXYGEN AT D/C, SHE DID NOT HAVE HOME O2 PRIOR TO ADMIT. CM WILL REMAIN AVAILABLE TO ASSIST AND FOLLOW FOR DISCHARGE PLANNING.
[2021-02-26 17:11] VITALS: BP 91/49
[2021-02-26 20:00] VITALS: BP 85/48
--- NOTE | 2021-02-26 20:00 | NUR ---
RECEIVED REPORT AND ASSUMED CARE OF PT, ASSESSMENT COMPLETED. PT HAS KYPHOSIS OF THE NECK, LG AMT OF PILLOWS AROUND HER AND UNDER HEAD FOR SUPPORT. ASSISTED TO BSC, VOIDING WITHOUT DIFFICULTY. O2 ON AT 2L/NC. WILL CONT TO MONITOR AND ASSIST NEEDED.
[2021-02-26 23:54] VITALS: BP 84/43
--- NOTE | 2021-02-27 05:40 | NUR ---
SPOKE WITH DGT UPDATING HER ON PT CONDITION. PT SLEPT FAIRLY WELL WITH XANAX GIVEN. ASSESSMENT UNCHANGED. BP LOW BUT NORMAL FOR PT. PT REFUSING TO REPOSITION IN BED, EDUCATION GIVEN. NO BREAKDOWN NOTED BUT BUTTOCKS RED. HS GOALS OF REST AND SAFETY ACHIEVED.
[2021-02-27 07:59] VITALS: BP 101/51
[2021-02-27] MEDS ORDERED: MORPHINE SULFAT15 M3 PO (10:02)
[2021-02-27] MEDS ORDERED: ALPRAZOLAM0.5 M2 PO (10:02)
[2021-02-27 11:32] VITALS: BP 95/47
--- NOTE | 2021-02-27 13:24 | NUR ---
PLAN OF CARE: PHYSICIAN INFORMS OF PLAN FOR PT TO D/C TO HOME OR LTC FACILITY WITH HOSPICE. JORDY, RN WITH [facility] 'DECLINED PT AT THIS TIME' SHE 'DOES NOT MEET CRITERIA, BECAUSE PT DOES NOT HAVE ANY UNMANAGED SYMPTOMS, NOT ON ANY IV MEDS AND DOES NOT CURRENTLY NEED 1:1 NURSING CARE'. JORDY INFORMS THAT SHE WILL LEAVE THE PT'S CASE OPEN, AND IF PT'S STATUS CHANGES OVER THE WEEKEND CONTACT HOSPICE MANAGER WINTER NURSE AND THEY WILL RE-EVALUATE PT. NEENA DISCUSSED HOME VS LTC WITH HOSPICE WITH PT'S DTR, AND SHE INFORMS THAT THE PT DOES NOT HAVE ANYONE WHO IS ABLE TO STAY WITH HER AT HOME, AND SHE DOES NOT HAVE THE FINANCES TO PAY FOR LTC. CM INFORMED NURSING AND PHYSICIAN OF ALL OF THE ABOVE INFO. CM WILL REMAIN AVAILABLE TO ASSIST AND FOLLOW NEEDED. [facility] (CHARGE NURSE) PHONE: [phone]
[2021-02-27 13:55] VITALS: BP 102/65
[2021-02-27 15:55] VITALS: BP 102/56
--- NOTE | 2021-02-27 20:22 | NUR ---
Pt arrived to floor around 1730. This nurse agrees with assessment done this morning. Pt settled into room with belonings in reach and call light within reach. Bed in low postion, bed alarm on.
[2021-02-27 20:26] VITALS: BP 94/46
--- NOTE | 2021-02-28 04:25 | NUR ---
PT A&O, VSS ON 2L NC, IV SALINE LOCKED. PRN PAIN AND ANXIOLYTIC MEDS REQUESTED AND GIVEN ORDERED. PT REPOSITIONED Q2H, FLUID RESTRICTION MAINTAINED. WILL CONTINUE TO MONITOR.
[2021-02-28 06:04] VITALS: BP 104/54
[2021-02-28 08:10] VITALS: BP 103/48
[2021-02-28 16:00] VITALS: BP 10/50
--- NOTE | 2021-02-28 20:04 | NUR ---
Pt remained A&O x4 for entire shift. Vital signs stable. Pt is drowsy and does not open eyes very much. Pt able to answer direct questions and express needs. Pt given meds per JAN. Dr. Sanchez D/C all oral medications at this point. Pt is notably depressed. After being asked if she needed anything else, pt stated, "yeah, something to end this." Pt also stated on several occasions that she was ready to leave and not have to worry about anything anymore. Pt has had several visitors throughout the day. Bed in low position, bed alarm on, call light within reach.
[2021-02-28 21:00] VITALS: BP 103/48
--- NOTE | 2021-03-01 05:09 | NUR ---
PATIENT ALERT AT TIMES. ORIENTATION FLUCUATES AND IS FORGETFUL. FAMILY AT BEDSIDE UNTIL 2300. PATIENT REPOSTIONED FOR COMFORT. PURE WICK UTILIZED. VITAL SIGNS STABLE WITH O2 AT 2L/MIN, BP SOFT. DRESSINGS/WRAPS BLE CLEAN AND DRY. HAS NOT REQUIRED PAIN OR ANXIETY MEDICATIONS THIS SHIFT. FALL PRECAUTIONS IN PLACE.
[2021-03-01 08:05] VITALS: BP 104/48
[2021-03-01 16:00] VITALS: BP 112/50
--- NOTE | 2021-03-01 19:40 | NUR ---
Pt remained A&O x4 for enitire day. Pt noting several times that she would like a new body and is ready to leave and not have to worry about it. Pt had several family members into visit her today and was awake to tell stories and enjoy their company. Pt given IV pain and anxiety meds twice today and showed immediate relief. Pt repositioned several times this shift. Gonzalez catheter was inserted for comfort. Pt ate a cup of jello at lunch and at dinner. Bed in low position, call light within reach.
--- NOTE | 2021-03-01 19:45 | NUR ---
Pt's daughter would like for CM to call her and discuss a hospice house reevaluation.
--- NOTE | 2021-03-02 04:24 | NUR ---
PT DROWSY, VSS ON 2L NC, PT ON COMFORT CARE, PT REFUSES ORAL MEDS AND LOVENOX. IV PAIN MED REQUESTED AND GIVEN ORDERED, URINARY CATHETER IN PLACE, PT REPOSTIONED Q2H. ASSESSMENTS AND HOURLY ROUNDINGS COMPLETE. WILL CONTINUE TO MONITOR.
[2021-03-02 08:00] VITALS: BP 107/53
--- NOTE | 2021-03-02 13:08 | NUR ---
CM spoke with Pt's dtr in room. Dtr overwhelmed with how to get her mom what she needs. Cm contacted hospice house and [facility] to get them to come out and reassess Pt. Dtr and son are on their way back to the hospital for the assessments. Pt medically stable to dc once appropriate placement secured. CM asked Med Assist to screen Pt for [place] [facility], in case Pt continues to not qualify for hospice house placement. If Pt qualifes for JOS[facility], should be able to find a LTC facility that accepts [facility] pending with hospice. Await hospice house decisions.
--- NOTE | 2021-03-02 15:11 | NUR ---
WOUND NURSE: PATIENT SEEN FOR FOLLOW UP ASSESSMENT OF BLE. RLE WITHOUT WOUNDS OR EDEMA. LLE WITH ONE LESION ON THE LATERAL ASPECT MEASURING 2.5 X 2.5 X 0.1 CM, CONTAINS RED, NONGRANULATING TISSUE IN THE WOUND BED, MODERATE AMOUNT OF SEROUSANGUINOUS DRAINAGE. BLE CLEANSED WITH SOAP AND WATER, RINSED, THEN PATTED DRY. APPLIED LOTION TO INTACT SKIN TOES TO KNEE. APPLIED OPTIFOAM GENTLE AG TO ONLY WOUND ON LLE. WRAPPED BLE WITH COTTON CAST PADDING UNDER KERLEX UNDER LIGHT JURGEN WRAP. PATIENT ANSWERS BY KNODDING HER HEAD. WILL BE LEAVING FOR HOSPICE HOUSE LATER TODAY. FAMILY PRESENT IN THE ROOM.
--- NOTE | 2021-03-02 19:06 | NUR ---
PT DISCHARGED TO HOSPICE HOUSE PER AMBULANCE. DAUGHTER AND SON AT BEDSIDE. REPORT CALLED TO ISA[facility] FERREIRA
== END 2021-03-02 19:00 | disposition hospice, inpatient (51) | DRG 871 ==
LOC: M.ERS 23:44 → M.TBA-ER 02-09 04:54 → M.2W 02-09 04:54 → M.ICU 02-11 12:05 → M.2W 02-23 14:55 → M.ORTHSURG 02-27 18:00
PROVIDERS: Internal Medicine; Internal Medicine Cardiovascular Disease; Personal Emergency Response Attendant; Registered Nurse; ADMIT Family Medicine; ATTEND Family Medicine
PROC: 02HV33Z Insertion of Infusion Device into Superior Vena Cava, Percutaneous Approach (ICD-10-PCS; principal; 2021-02-11)
PROC: B548ZZA Ultrasonography of Superior Vena Cava, Guidance (ICD-10-PCS; principal; 2021-02-11)
DX: A41.52 Sepsis due to Pseudomonas (principal); I21.4 Non-ST elevation (NSTEMI) myocardial infarction; I50.33 Acute on chronic diastolic (congestive) heart failure; J96.01 Acute respiratory failure with hypoxia; J15.9 Unspecified bacterial pneumonia; R57.0 Cardiogenic shock; E87.1 Hypo-osmolality and hyponatremia; N39.0 Urinary tract infection, site not specified; J91.8 Pleural effusion in other conditions classified elsewhere; I35.0 Nonrheumatic aortic (valve) stenosis; E03.9 Hypothyroidism, unspecified; I95.9 Hypotension, unspecified; M81.0 Age-related osteoporosis without current pathological fracture; E80.6 Other disorders of bilirubin metabolism; D64.9 Anemia, unspecified; M10.9 Gout, unspecified; D69.6 Thrombocytopenia, unspecified; Z66 Do not resuscitate; Z20.822 Contact with and (suspected) exposure to COVID-19; Z96.653 Presence of artificial knee joint, bilateral; Z96.1 Presence of intraocular lens; Z51.5 Encounter for palliative care; Z90.11 Acquired absence of right breast and nipple; Z91.14 Patient's other noncompliance with medication regimen; Z90.710 Acquired absence of both cervix and uterus; Z85.42 Personal history of malignant neoplasm of other parts of uterus; Z90.49 Acquired absence of other specified parts of digestive tract; Z98.42 Cataract extraction status, left eye; Z98.41 Cataract extraction status, right eye; Z79.899 Other long term (current) drug therapy; Z88.2 Allergy status to sulfonamides; Z88.8 Allergy status to other drugs, medicaments and biological substances; Z91.018 Allergy to other foods